=== PATIENT | female | born 1970 | race Caucasian/White ===

== ENCOUNTER 2019-02-26 08:34 | Outpatient (RCR) | payer SELFPAY | END 2019-03-11 00:01 | LOC: SOT 08:34 | PROVIDERS: Visit Provider Orthopaedic Surgery Hand Surgery | DX: S63.591D Other specified sprain of right wrist, subsequent encounter (principal); X58.XXXD Exposure to other specified factors, subsequent encounter | CPT/HCPCS: 97110 ×5; 97112; 97166 ×2; L3923 ==

== ENCOUNTER 2019-03-12 06:00 | Outpatient (RCR) | payer OTHER, SELFPAY | END 2019-04-11 23:59 | disposition home or self-care (01) | LOC: SOT 06:00 | PROVIDERS: Visit Provider Orthopaedic Surgery Hand Surgery | DX: S63.591D Other specified sprain of right wrist, subsequent encounter (principal); X58.XXXD Exposure to other specified factors, subsequent encounter | CPT/HCPCS: 97035; 97110; 97112; 97140 ==

== ENCOUNTER 2019-03-15 18:11 | Outpatient (RCR) | payer OTHER, SELFPAY | END 2019-04-11 23:59 | disposition home or self-care (01) | LOC: SOT 18:11 | PROVIDERS: Visit Provider Orthopaedic Surgery Hand Surgery | DX: S63.591A Other specified sprain of right wrist, initial encounter (principal); X58.XXXA Exposure to other specified factors, initial encounter ==

== ENCOUNTER 2019-04-12 06:00 | Outpatient (RCR) | payer OTHER, SELFPAY | END 2019-05-10 23:59 | disposition home or self-care (01) | LOC: SOT 06:00 | PROVIDERS: Visit Provider Orthopaedic Surgery Hand Surgery | DX: S63.591D Other specified sprain of right wrist, subsequent encounter (principal); X58.XXXD Exposure to other specified factors, subsequent encounter | CPT/HCPCS: 97035; 97110; 97112; 97140 ==

== ENCOUNTER 2019-04-12 06:00 | Outpatient (RCR) | payer OTHER, SELFPAY | END 2019-05-10 23:59 | disposition home or self-care (01) | LOC: SOT 06:00 | PROVIDERS: Visit Provider Orthopaedic Surgery Hand Surgery | DX: Z01.89 Encounter for other specified special examinations (principal) ==

== ENCOUNTER 2019-05-11 06:00 | Outpatient (RCR) | payer OTHER, SELFPAY | END 2019-06-10 23:59 | disposition home or self-care (01) | LOC: SOT 06:00 | PROVIDERS: Visit Provider Orthopaedic Surgery Hand Surgery | DX: S63.591D Other specified sprain of right wrist, subsequent encounter (principal); X58.XXXD Exposure to other specified factors, subsequent encounter | CPT/HCPCS: 97110; 97112; 97530 ==

== ENCOUNTER 2019-07-11 06:00 | Outpatient (RCR) | payer OTHER, SELFPAY | END 2019-08-10 23:59 | disposition home or self-care (01) | LOC: SOT 06:00 | PROVIDERS: Visit Provider Orthopaedic Surgery Hand Surgery | DX: S63.591D Other specified sprain of right wrist, subsequent encounter (principal); X58.XXXD Exposure to other specified factors, subsequent encounter | CPT/HCPCS: 97110; 97530 ==

== ENCOUNTER 2019-08-11 06:00 | Outpatient (RCR) | payer OTHER, SELFPAY | END 2019-09-09 23:59 | disposition home or self-care (01) | LOC: SOT 06:00 | PROVIDERS: Visit Provider Orthopaedic Surgery Hand Surgery | DX: S63.591D Other specified sprain of right wrist, subsequent encounter (principal) | CPT/HCPCS: 97110; 97112; 97140; 97530 ==

== ENCOUNTER 2019-09-10 06:00 | Outpatient (RCR) | payer OTHER, SELFPAY | END 2019-10-10 23:59 | disposition home or self-care (01) | LOC: SOT 06:00 | PROVIDERS: Visit Provider Orthopaedic Surgery Hand Surgery | DX: S63.591D Other specified sprain of right wrist, subsequent encounter (principal) | CPT/HCPCS: 97110; 97530 ==

== ENCOUNTER 2019-10-11 06:00 | Outpatient (RCR) | payer OTHER, SELFPAY | END 2019-11-10 23:59 | disposition home or self-care (01) | LOC: SOT 06:00 | PROVIDERS: Visit Provider Orthopaedic Surgery Hand Surgery | DX: S63.591D Other specified sprain of right wrist, subsequent encounter (principal) | CPT/HCPCS: 97110; 97140; 97530 ==

== ENCOUNTER 2019-11-11 06:00 | Outpatient (RCR) | payer OTHER, SELFPAY | END 2019-12-10 23:59 | disposition home or self-care (01) | LOC: SOT 06:00 | PROVIDERS: Visit Provider Orthopaedic Surgery Hand Surgery | DX: S63.591D Other specified sprain of right wrist, subsequent encounter (principal) | CPT/HCPCS: 97110; 97112; 97140 ==

== ENCOUNTER 2019-12-11 06:00 | Outpatient (RCR) | payer OTHER, SELFPAY | END 2020-01-10 23:59 | disposition home or self-care (01) | LOC: SOT 06:00 | PROVIDERS: Visit Provider Orthopaedic Surgery Hand Surgery | DX: Z47.89 Encounter for other orthopedic aftercare (principal) | CPT/HCPCS: 97032; 97110; 97530 ==

== ENCOUNTER → 2019-12-29 12:25 | Outpatient (BNVA) | payer OTHER, SELFPAY | PROVIDERS: Visit Provider Nurse Practitioner Family | DX: Z11.59 Encounter for screening for other viral diseases (principal); Z20.828 Contact with and (suspected) exposure to other viral communicable diseases; J06.9 Acute upper respiratory infection, unspecified | CPT/HCPCS: 87635 ==

== ENCOUNTER 2020-01-11 06:00 | Outpatient (RCR) | payer OTHER, SELFPAY | END 2020-02-09 23:59 | disposition home or self-care (01) | LOC: SOT 06:00 | PROVIDERS: Visit Provider Orthopaedic Surgery Hand Surgery | DX: S69.81XD Other specified injuries of right wrist, hand and finger(s), subsequent encounter (principal) | CPT/HCPCS: 97110; 97112; 97535 ==

== ENCOUNTER 2020-02-10 06:00 | Outpatient (RCR) | payer OTHER, SELFPAY | END 2020-03-11 23:59 | disposition home or self-care (01) | LOC: SOT 06:00 | PROVIDERS: Visit Provider Orthopaedic Surgery Hand Surgery | DX: S69.81XD Other specified injuries of right wrist, hand and finger(s), subsequent encounter (principal) | CPT/HCPCS: 97035; 97110; 97112; 97535 ==

== ENCOUNTER 2020-03-12 06:00 | Outpatient (RCR) | payer OTHER, SELFPAY | END 2020-04-11 23:59 | disposition home or self-care (01) | LOC: SOT 06:00 | PROVIDERS: Visit Provider Orthopaedic Surgery Hand Surgery | DX: S69.81XD Other specified injuries of right wrist, hand and finger(s), subsequent encounter (principal) | CPT/HCPCS: 97110; 97112; 97140; 97530; 97535 ==

== ENCOUNTER 2020-04-12 06:00 | Outpatient (RCR) | payer OTHER, SELFPAY | END 2020-05-09 23:59 | disposition home or self-care (01) | LOC: SOT 06:00 | PROVIDERS: Visit Provider Orthopaedic Surgery Hand Surgery | DX: S69.81XD Other specified injuries of right wrist, hand and finger(s), subsequent encounter (principal) | CPT/HCPCS: 97110; 97112; 97530 ==

== ENCOUNTER 2020-05-04 06:00 | Outpatient (RCR) | payer OTHER, SELFPAY | END 2020-05-06 23:59 | disposition home or self-care (01) | LOC: SPT 06:00 | PROVIDERS: Referring Provider Orthopaedic Surgery Hand Surgery; Visit Provider Orthopaedic Surgery Hand Surgery | DX: Z47.89 Encounter for other orthopedic aftercare (principal); S63.591D Other specified sprain of right wrist, subsequent encounter; X58.XXXD Exposure to other specified factors, subsequent encounter | CPT/HCPCS: 97750 ==

== ENCOUNTER 2020-11-15 11:20 | Emergency (ER) | payer MEDICARE, MEDICAID, SELFPAY ==
[2020-11-15 11:25] VITALS: BP 135/96; PULSE 123; RESP 21; TEMP 36.9; O2SAT 94; BMI 25.1
--- NOTE | 2020-11-15 12:27 | CTR_ITS ---
PROCEDURE INFORMATION: Exam: CT Maxillofacial With Contrast Exam date and time: 11/15/2020 12:27 PM Age: 50 years old Clinical indication: Mass, lump, or swelling; Other: Lt cheek; Jaw pain; Prior surgery; Additional info: Facial swelling TECHNIQUE: Imaging protocol: Computed tomography images of the face with intravenous contrast. Radiation optimization: All CT scans at this facility use at least one of these dose optimization techniques: automated exposure control; mA and/or kV adjustment per patient size (includes targeted exams where dose is matched to clinical indication); or iterative reconstruction. Contrast material: OMNI 300; Contrast volume: 95 ml; Contrast route: INTRAVENOUS (IV); COMPARISON: No relevant prior studies available. RADIATION DOSE METRICS: Total DLP (mGy-cm): 724.12 FINDINGS: Orbital cavity: Orbits are normal. Globes are unremarkable. Bones/joints: No acute fracture. Paranasal sinuses: There is opacification of the bilateral maxillary and ethmoid sinus. Soft tissues: There is soft tissue swelling along the left maxilla and mandible. No abscess or soft tissue gas. Lymph nodes: There are bilateral jugulodigastric lymph nodes with a short-axis diameter of [address]/CT facial bones w con [id number] IMPRESSION: There is soft tissue cellulitis of the left face adjacent to the left maxilla and mandible.No abscess or soft tissue gas. Radiation Dose CTDIVOL = (mGy): DLP = 724.12 (mGy-cm)
--- NOTE | 2020-11-15 12:34 | W.ED.GENADLT ---
HPI - General Adult General: Chief complaint: General Medical Stated complaint: Swollen Face Time Seen by Provider: 11/15/20 12:26 History of Present Illness: HPI narrative: 50-year-old female presents with left facial swelling. States she has had dental caries and has had a left upper toothache for 5 days. Yesterday she started noticing left facial swelling. Denies any swelling in her throat. Denies difficulty tolerating food or liquids. Denies muffled voice throat pain chest pain or shortness of breath. Denies headache or focal weakness numbness tingling vision or hearing change. Denies fevers or chills. Able to tolerate secretions. Review of Systems Narrative: - CONSTITUTIONAL: Denies weight loss, fever and chills. - HEENT: See above, denies changes in vision and hearing. - RESPIRATORY: Denies SOB and cough. - CV: Denies palpitations and CP. - GI: Denies abdominal pain, nausea, vomiting and diarrhea. - : Denies dysuria and urinary frequency. - MSK: Denies myalgia and joint pain. - SKIN: Denies rash and pruritus. - NEUROLOGICAL: Denies headache, weakness, numbness and syncope. - PSYCHIATRIC: Denies suicidal ideation Physical Exam Narrative: EXAM NARRATIVE: - GENERAL: Alert and oriented x 3. No acute distress. Well-nourished. - EYES: EOMI. Anicteric. - HENT: Left facial swelling especially around the left cheek. There is dental caries. Uvula is midline. No signs of David's angina. Moist mucous membranes. No scleral icterus. No cervical lymphadenopathy. - LUNGS: Clear to auscultation bilaterally. No accessory muscle use. - CARDIOVASCULAR: Regular rate and rhythm. No murmur. No JVD. - ABDOMEN: Soft, non-tender and non-distended. Negative CVA tenderness bilaterally, no rebound or guarding, negative Moscoso sign. No palpable masses. - EXTREMITIES: No edema. Non-tender. - SKIN: No rashes or lesions. Warm. - NEUROLOGIC: No meningismus or focal neurological deficits. CN II-XII grossly intact. - PSYCHIATRIC: Cooperative. Appropriate mood and affect. Course Vital Signs: Vital signs: Vital Signs Temperature 97.7 F 11/15/20 14:01 Pulse Rate 90 11/15/20 14:01 Respiratory Rate 16 11/15/20 14:01 Blood Pressure 144/81 11/15/20 14:01 Pulse Oximetry 97 11/15/20 14:01 MDM - General Adult MDM Narrative: Medical decision making narrative: 50-year-old female presents with left facial swelling. Does have dental caries. No signs of Margarito's angina or deep tissue abscess. She does not have stridor. She is tolerating secretions. Initially tachycardic but this improved after IV fluids. Otherwise she seemed to be stable afebrile nontoxic-appearing. CBC and BMP unremarkable. No signs of sepsis. Dose of clindamycin provided emergency department with significant reduction in swelling. Prescription for clindamycin provided. CT scan does not reveal any orbital cellulitis or deep tissue infection. There are signs of cellulitis. Patient was given dental resource sheet and social work was contacted to help patient set up appointment with dentist and PCP. At this time I believe patient would be safe for discharge and outpatient follow-up. Return precautions provided. Plan was reviewed with the patient who expressed understanding. Questions answered. Patient will follow up with dentist and PCP. Patient discharged in stable condition. Lab Data: Labs: Lab Results 11/15/20 11/15/20 11/15/20 Range/Units 13:30 13:30 15:03 WBC 8.3 (4.0-10.0) 10^3/ uL RBC 4.44 (4.1-5.3) 10^6/u L Hgb 14.4 (11.5-15.3) g/dL Hct 44.7 (37.0-47.0) % MCV 100.7 H (81-99) fl MCH 32.4 (28.0-34.0) pg MCHC 32.2 (30.0-36.0) g/dL RDW 14.8 (12.1-15.1) % Plt Count 352 (130-400) 10^3/c mm MPV 8.8 (7.4-10.4) fL Neut % (Auto) 61.3 % Lymph % (Auto) 30.2 % Steele % (Auto) 6.9 % Eos % (Auto) 0.6 % Baso % (Auto) 0.6 % Neut # (Auto) 5.11 (1.8-7.7) 10^3/u L Lymph # (Auto) 2.5 (0.8-4.8) 10^3/u L [place] # (Auto) 0.6 (0.2-0.9) 10^3/u L Eos # (Auto) 0.1 (0.0-0.8) 10^3/u L Baso # (Auto) 0.1 (0.0-0.1) 10^3/u L Nucleated RBC % (a uto) 0 % Nucleated RBCs # 0.0 /100WBC Sodium Cancelled 138 Potassium Cancelled 4.2 Chloride Cancelled 99 Carbon Dioxide Cancelled 24 Anion Gap Cancelled 19.2 H BUN Cancelled 12 Creatinine Cancelled 0.7 GFR Calculation Cancelled 88.2 L Glucose Cancelled 83 Calculated Osmolal ity Cancelled 285 Calcium Cancelled 8.8 Discharge Plan Discharge Patient Disposition: Home Clinical Impression: Facial cellulitis, Pain, dental Condition: Stable Prescriptions: New clindamycin HCl 150 mg capsule 450 mg PO Q8H 7 Days Qty: 63 RF: 0 No Action Aspir-81 81 mg Tablet,Delayed Release (Dr/Ec) 81 mg PO QAM RF: 0 Euthyrox 100 mcg tablet 200 mcg PO QAM RF: 0 nortriptyline 10 mg capsule 10 mg PO BEDTIME RF: 0 ibuprofen 200 mg Tablet 800 mg PO Q6H PRN (Reason: Pain) RF: 0 ProAir HFA 90 mcg/actuation Hfa Aerosol Inhaler 2 puff INHALATION Q4H PRN (Reason: Shortness Of Breath) RF: 0 Flovent HFA 2 puff PO BID RF: 0 Discharge Orders: Discharge ED (Routine); Ordered 11/15/20 Ordered By: Oliverio Dc Patient Instructions: Cellulitis (ED), Toothache (ED), Opioid Safety Coding Level of Care Code ED Torch Straightener And Heater for Serenity Chaney
--- NOTE | 2020-11-15 12:44 | PC.PHAR ---
pt states she takes care of her own medications-pt states she got a flovent inhaler in [place] when she lived there states she is unsure of the mcg -pt states she just started taking a daily aspirin 81mg about 4 days ago
[2020-11-15 12:47] VITALS: BP 141/88; PULSE 94; RESP 16; TEMP 36.4; O2SAT 100
[2020-11-15] MEDS: iohexol 300 mg/mL 100 mL Btl IV (13:01)
[2020-11-15 13:24] VITALS: RESP 16; O2SAT 98
[2020-11-15] MEDS: ondansetron 2 mg/ML SDV 2 mL 4 MG IVP ×2 (13:24→15:37)
[2020-11-15] MEDS: morphine 4 mg/mL SDV 1 mL IVP (13:24)
[2020-11-15] MEDS: sodium chloride 0.9% 1,000 ML 999 ML IV (13:24)
[2020-11-15] MEDS: clindamycin 900 MG/50 ML PREMIX 100 MG IV (13:29)
[2020-11-15 13:55] LABS: Basophils # 0.1 10^3/uL (0.0-0.1); Basophils % 0.6 %; Eosinophils # 0.1 10^3/uL (0.0-0.8); Eosinophils % 0.6 %; Hematocrit 44.7 % (37.0-47.0); Hemoglobin 14.4 g/dL (11.5-15.3); Lymphocytes # 2.5 10^3/uL (0.8-4.8); Lymphocytes % 30.2 %; Mean Corpuscular HGB Conc 32.2 g/dL (30.0-36.0); Mean Corpuscular Hemoglobin 32.4 pg (28.0-34.0); Mean Corpuscular Volume 100.7 fl (81-99); Mean Platelet Volume 8.8 fL (7.4-10.4); Monocytes # 0.6 10^3/uL (0.2-0.9); Monocytes % 6.9 %; Neutrophils # 5.11 10^3/uL (1.8-7.7); Neutrophils % 61.3 %; Nucleated Red Blood Cells % 0 %; Platelet Count 352 10^3/cmm (130-400); Red Blood Count 4.44 10^6/uL (4.1-5.3); Red Cell Distribution Width 14.8 % (12.1-15.1); White Blood Count 8.3 10^3/uL (4.0-10.0)
[2020-11-15 14:01] VITALS: BP 144/81; PULSE 90; RESP 16; TEMP 36.5; O2SAT 97
[2020-11-15 15:28] LABS: Anion Gap 19.2 (5-19); Blood Urea Nitrogen 12 mg/dL (6-20); Calcium 8.8 mg/dL (8.5-10.5); Carbon Dioxide 24 mmol/L (22-29); Chloride 99 mmol/L (98-107); Glomerular Filtration Rate 88.2 mL/min (90-130); Glucose 83 mg/dL (65-115); Osmolality Calculated 285 mOsm/kg (285-295); Potassium 4.2 mmol/L (3.5-5.1); Sodium 138 mmol/L (136-145)
[2020-11-15 16:14] VITALS: BP 126/79; PULSE 86; RESP 16; TEMP 36.7; O2SAT 99
--- NOTE | 2020-11-18 15:37 | DCPLANNER ---
retention manager had message to speak with patient about getting a dentist appointment for patient. retention manager spoke with patient and explained that there was not a dentist in the area that operates with a sliding scale. retention manager did tell patient that the clinic in [facility] have a sliding scale that patient could apply for.
== END 2020-11-15 16:24 | disposition home or self-care (01) ==
PROVIDERS: Emergency Provider Emergency Medicine
DX: L03.211 Cellulitis of face (principal); K08.89 Other specified disorders of teeth and supporting structures; Z79.82 Long term (current) use of aspirin
CPT/HCPCS: 70487; 80048; 85025; 87040; 96365; 96375; 96376; 99284; J2270; J2405; J3490; J7030; Q9967

== ENCOUNTER 2020-11-19 09:48 | Outpatient (CLI) | payer OTHER, SELFPAY ==
--- NOTE | 2020-11-19 09:55 | MR_ITS ---
WS: [id number] MRI CERVICAL SPINE NONCONTRAST HISTORY: RIGHT arm pain for one and a half years. COMPARISON: None available. Technique: Multiplanar, multisequence noncontrast imaging of the cervical spine. Straightening of the normal cervical lordosis. Very mild curvature. Signal within the cervical cord is normal. Visualized posterior fossa is unremarkable. Craniocervical junction, C1 and C2 relationship, odontoid process and soft tissues are normal. C2-C3: Normal. C3-C4: Normal. C4-C5: Small foraminal osteophytes. No stenosis. C5-C6: Bilateral foraminal osteophytes slightly greater on the LEFT. No stenosis. C6-C7: Minimal diffuse disc bulging and osteophytosis. No stenosis. C7-T1: Normal. Paraspinal soft tissue are normal. MR/MR cervical spin wo con* [id number] IMPRESSION: 1. Mild straightening and curvature of the cervical spine. 2. No high-grade central or foraminal stenosis. 3. Small osteophytes from C4-5 to C6-7 with no significant stenosis.
== END 2020-11-19 09:49 | disposition home or self-care (01) ==
LOC: RADWPI 09:52
PROVIDERS: Visit Provider Physical Medicine & Rehabilitation
DX: G90.511 Complex regional pain syndrome I of right upper limb (principal); M25.78 Osteophyte, vertebrae
CPT/HCPCS: 72141

== ENCOUNTER 2021-08-09 14:01 | Emergency (ER) | payer OTHER, SELFPAY ==
[2021-08-09 14:11] VITALS: BP 165/114; PULSE 106; RESP 18; TEMP 36.4; O2SAT 97; BMI 25.0
--- NOTE | 2021-08-09 14:42 | ED_ITS ---
HPI - Back Pain/Injury General: Chief Complaint: Back Pain/Injury Stated Complaint: back pain Time Seen by Provider: 08/09/21 14:20 Source: patient Mode of arrival: ambulatory Limitations: no limitations History of Present Illness: Patient is a 50-year-old female presents to ED today with a complaint of back pain. Patient tells me on 07/19 she had a spinal cord stimulator placed by a pain management clinic at [facility] in [place]. She states she was doing well following the procedure and felt like the stimulator was working well. She states on Sunday she went to stand up and immediately felt something pull in the right side of her back. Patient is concerned she damaged her spinal cord stimulator. She states she has turned off the device. Pain is centered around her right thoracic paraspinal musculature without radiation. MD elicited complaint: back pain Pertinent past history: prior back pain and back surgery Onset (ago): day(s) Timing: constant Severity: severe Similar Symptoms Previously: No Quality: burning and spasming Location: right upper back Radiation: none Exacerbating factors: movement Relieving factors: none Associated symptoms: Reports no associated symptoms and nausea; Deny abdominal pain, chills, change in bowel habits, dysuria, fever(s), urinary urgency or vomiting Work related injury: No Review of Systems Const: Denies: fever(s), chills or body aches Card: Denies: chest pain Resp: Denies: dyspnea GI: Reports: nausea; Denies: abdominal pain, vomiting, diarrhea or change in bowel habits : Denies: flank pain, difficulty voiding, dysuria, urinary frequency, urinary urgency or urinary hesitancy Musc: Reports: back pain; Denies: neck pain, extremity pain, extremity swelling, joint pain or joint swelling Skin/Breast: Denies: rash Neuro: Denies: headache(s), numbness in extremities, weakness in extremities or sensory changes Physical Exam Const: COMMON NORMALS: patient oriented x3, no limitations, alert and well nourished GENERAL APPEARANCE: cooperative and in distress (uncomfortable secondary to pain) ORIENTATION/CONSCIOUSNESS: Yes awake, Yes oriented to person, Yes oriented to place and Yes oriented to time Neck/C-Spine: COMMON NORMALS: full ROM GENERAL: Yes normal visual inspection CERVICAL SPINE: Yes cervical ROM normal, No pain with cervical ROM, No Cervical spine tenderness, No step off deformity and No Paracervical muscle tenderness Chest: COMMONS NORMALS: normal inspection of the chest and normal palpation of entire chest wall Resp: COMMON NORMALS: normal respiratory effort and clear to auscultation bilaterally AUSCULTATION: clear to auscultation bilaterally Cardio: COMMON NORMALS: regular rate and regular rhythm RATE: regular rate RHYTHM: regular rhythm GI: COMMON NORMALS: Normal to inspection, nondistended, normoactive bowel sounds present, Soft to palpation, non-tender, No hepatosplenomegaly present and no masses PALPATION: Yes Soft to palpation and Yes No hepatosplenomegaly present : COMMON NORMALS: Yes no CVA tenderness BLADDER/KIDNEY EXAM: Yes no CVA tenderness Back/Pelvis: COMMON NORMALS: no CVA tenderness THORACIC SPINE/UPPER BACK: Yes pain with ROM, No thoracic spinal tenderness and Yes paraspinal muscle spasm LUMBAR SPINE/LOWER BACK: Yes pain with ROM, No lumbar spinal tenderness and No paraspinal muscle spasm PELVIS: Yes buttocks normal SACROILIAC JOINTS: Yes SI joints normal OTHER: spinal cord stimulator incisions are clean/well healed BACK IMAGE (FEMALE): 1. TTP; muscle spasm palpable Extremity: COMMON NORMALS: normal to inspection GENERAL: Yes normal exam ex cept as noted Neuro: MELANY COMA SCALE: document GCS findings Melany coma scale eye opening: Spontaneous Melany coma scale verbal response: Orientated Melany coma scale motor response: Obey commands Melany coma scale total score: 15 COMMON NORMALS: patient oriented x3, moves all extremities, no focal motor deficits, no sensory deficits noted and gait normal SENSORIUM/ORIENTATION: Yes alert, Yes oriented to person, Yes oriented to place and Yes oriented to time Skin: COMMON NORMALS: no rashes or lesions noted GENERAL SKIN EXAM: no rashes or lesions noted Course Vital Signs: Vital signs: Vital Signs Temperature 97.6 F 08/09/21 14:11 Pulse Rate 106 H 08/09/21 14:11 Respiratory Rate 16 08/09/21 15:41 Blood Pressure 165/114 08/09/21 14:11 Pulse Oximetry 97 08/09/21 14:11 MDM - Back Pain/Injury Medical Decision Making Patient states she feels better after IM medications given here. She states she is now able to sit and stand without difficulty whereas before she was having quite a bit of discomfort with this. I would have a low suspicion for any damage to her spinal cord stimulator such as lead migration or lead fracture based on her mechanism of injury. She had point tenderness and spasm to her right thoracic paraspinal musculature. Recommend she does go ahead and follow- up with her acid painter that placed the stimulator. Will place on muscle relaxer, steroid, NSAIDS in the meantime. Discharge Plan Discharge Patient Disposition: Home Clinical Impression: Paraspinal muscle spasm Strain of mid-back Qualifiers: Encounter type: initial encounter Qualified Code(s): S29.012A - Strain of muscle and tendon of back wall of thorax, initial encounter Condition: Stable Prescriptions: New diclofenac sodium 50 mg tablet,delayed release (DR/EC) 50 mg PO Q12H PRN (Reason: pain) Qty: 20 0RF Medrol (Vishal) 4 mg tablets,dose pack See Rx Instructions .ROUTE .COMPLEX Qty: 21 0RF Rx Instructions: orally per package directions Valium 5 mg tablet 5 mg PO Q8H PRN (Reason: muscle spasm) Qty: 14 0RF Discontinued ibuprofen 200 mg Tablet 800 mg PO Q6H PRN (Reason: Pain) 0RF No Action Aspir-81 81 mg Tablet,Delayed Release (Dr/Ec) 81 mg PO QAM 0RF Euthyrox 100 mcg tablet 200 mcg PO QAM 0RF nortriptyline 10 mg capsule 10 mg PO BEDTIME 0RF ProAir HFA 90 mcg/actuation Hfa Aerosol Inhaler 2 puff INHALATION Q4H PRN (Reason: Shortness Of Breath) 0RF Flovent HFA 2 puff PO BID 0RF Discharge Orders: Discharge ED (Routine); Ordered 08/09/21 Ordered By: Monica Francis Coding Level of Care Code ED Journey Lineman for Ancag Fwd Exam Comprehensive
[2021-08-09] MEDS: orphenadrine 30 mg/mL Inj 2 mL 60 MG IM (15:40)
[2021-08-09] MEDS: dexamethasone 10 mg/mL INJ 8 MG IM (15:40)
[2021-08-09] MEDS: ketorolac 60 mg/2 mL INJ IM (15:40)
[2021-08-09 15:41] VITALS: RESP 16
[2021-08-09] MEDS: morphine 4 mg/mL SDV 1 mL IM (15:41)
== END 2021-08-09 16:47 | disposition home or self-care (01) ==
PROVIDERS: Emergency Provider Physician Assistant
DX: S29.012A Strain of muscle and tendon of back wall of thorax, initial encounter (principal); X58.XXXA Exposure to other specified factors, initial encounter
CPT/HCPCS: 96372; 99284; J1100; J1885; J2270; J2360

== ENCOUNTER 2021-10-26 06:00 | Outpatient (RCR) | payer OTHER, SELFPAY | END 2021-11-09 23:59 | disposition home or self-care (01) | LOC: SPT 06:00 | PROVIDERS: Visit Provider Physical Medicine & Rehabilitation | DX: G90.511 Complex regional pain syndrome I of right upper limb (principal) | CPT/HCPCS: 97162 ==

== ENCOUNTER 2021-11-10 | Outpatient (RCR) | payer OTHER, SELFPAY | END 2021-12-09 23:59 | disposition home or self-care (01) | LOC: SPT | PROVIDERS: Visit Provider Physical Medicine & Rehabilitation | DX: G90.511 Complex regional pain syndrome I of right upper limb (principal) | CPT/HCPCS: 97110 ==

== ENCOUNTER 2021-12-10 06:00 | Outpatient (RCR) | payer OTHER, SELFPAY | END 2022-01-09 23:59 | disposition home or self-care (01) | LOC: SPT 06:00 | PROVIDERS: Visit Provider Physical Medicine & Rehabilitation | DX: G90.511 Complex regional pain syndrome I of right upper limb (principal) | CPT/HCPCS: 97110 ==

== ENCOUNTER 2022-02-09 06:00 | Outpatient (RCR) | payer OTHER, SELFPAY | END 2022-03-11 23:59 | disposition home or self-care (01) | LOC: SPT 06:00 | PROVIDERS: Visit Provider Physical Medicine & Rehabilitation | DX: G90.511 Complex regional pain syndrome I of right upper limb (principal) | CPT/HCPCS: 97110 ==

== ENCOUNTER 2022-03-12 06:00 | Outpatient (RCR) | payer OTHER, SELFPAY | END 2022-04-11 23:59 | disposition home or self-care (01) | LOC: SPT 06:00 | PROVIDERS: Visit Provider Physical Medicine & Rehabilitation | DX: G90.511 Complex regional pain syndrome I of right upper limb (principal) | CPT/HCPCS: 97110 ==

== ENCOUNTER 2022-04-12 06:00 | Outpatient (RCR) | payer OTHER, SELFPAY | END 2022-05-09 23:59 | disposition home or self-care (01) | LOC: SPT 06:00 | PROVIDERS: Visit Provider Physical Medicine & Rehabilitation | DX: G90.511 Complex regional pain syndrome I of right upper limb (principal) | CPT/HCPCS: 97110 ==

== ENCOUNTER 2022-05-24 23:22 | Emergency (ER) | payer MEDICARE, SELFPAY ==
[2022-05-24 23:47] VITALS: BMI 26.5
[2022-05-24 23:57] VITALS: BP 166/77; PULSE 89; RESP 16; TEMP 36.8; O2SAT 95
--- NOTE | 2022-05-25 00:07 | ECG_ITS ---
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
--- NOTE | 2022-05-25 00:15 | W.ED.GENADLT ---
HPI - General Adult General: Chief complaint: General Medical Stated complaint: High Blood Pressure Time Seen by Provider: 05/24/22 23:24 Source: patient Mode of arrival: ambulatory Limitations: no limitations History of Present Illness: 51-year-old female has a history of hypertension she states she took her blood pressure today at [facility] was 180/120 she came extremely anxious and came into the ER she still very anxious and tearful she denies any chest pain denies any pain anywhere denies any worsening proving factors blood pressure here is now normal. Associated symptoms: Deny chest pain, dyspnea, headache(s), nausea, rash or vomiting Review of Systems Const: Denies: fever(s), chills, body aches or change in appetite Eyes: Denies: blurry vision or eye discomfort ENMT: Denies: throat pain or dental pain Card: Denies: chest pain Resp: Denies: dyspnea GI: Denies: abdominal pain, nausea, vomiting or diarrhea : Denies: dysuria Musc: Denies: neck pain or back pain Skin/Breast: Denies: rash Neuro: Denies: headache(s) Psych: Denies: depression Brian/Lymph: Denies: easy bruising All/Imm: Denies: urticaria PFSH ED PFSH: Medical History (Updated 05/25/22 @ 01:02 by Juliane Saldivar MD) Hypertension Social History (Updated 05/25/22 @ 00:15 by Juliane Saldivar MD) Substance/Drug Use: never Physical Exam Const: COMMON NORMALS: no acute distress, patient oriented x3 and healthy appearing GENERAL APPEARANCE: anxious HENMT: COMMON NORMALS: normocephalic and atraumatic HEAD & SCALP: normocephalic and atraumatic Eye: COMMON NORMALS: Equal, round and reactive pupils present and EOMs intact bilaterally PUPIL: Yes Equal, round and reactive pupils present Neck/C-Spine: COMMON NORMALS: full ROM and supple Chest: COMMONS NORMALS: normal inspection of the chest and normal palpation of entire chest wall Resp: COMMON NORMALS: normal respiratory effort, No retractions, No use of accessory muscles and clear to auscultation bilaterally AUSCULTATION: clear to auscultation bilaterally Cardio: COMMON NORMALS: regular rate, regular rhythm and No murmurs present (Cardio) RATE: regular rate RHYTHM: regular rhythm GI: COMMON NORMALS: Normal to inspection, nondistended, normoactive bowel sounds present, Soft to palpation, non-tender and no masses PALPATION: Yes Soft to palpation Extremity: COMMON NORMALS: normal to inspection and full ROM Neuro: COMMON NORMALS: patient oriented x3, moves all extremities and no focal motor deficits Psych: COMMON NORMALS: mental status grossly normal, Normal thought process present and cooperative THOUGHT PROCESS: Normal thought process present Skin: COMMON NORMALS: no rashes or lesions noted and no wounds GENERAL SKIN EXAM: no rashes or lesions noted Course Vital Signs: Vital signs: Vital Signs Temperature 98.2 F 05/24/22 23:57 Pulse Rate 89 05/24/22 23:57 Respiratory Rate 16 05/24/22 23:57 Blood Pressure 166/77 05/24/22 23:57 Pulse Oximetry 95 05/24/22 23:57 Oxygen Delivery Me thod 05/24/22 23:57 MDM - General Adult Medical Decision Making Patient presents here after a high reading of her blood pressure at the [employer] blood pressure cuff.'s been normal blood work is normal she is stable for discharge she is to follow-up with her PCP and return if worsening she understands agrees to plan. Lab Data 05/25/22 00:39 05/25/22 00:39 Laboratory Results WBC 6.0 10^3/uL (4.0-10.0) 05/25/22 00:39 RBC 4.45 10^6/uL (4.1-5.3) 05/25/22 00:39 Hgb 14.1 g/dL (11.5-15.3) 05/25/22 00:39 Hct 43.5 % (37.0-47.0) 05/25/22 00:39 MCV 97.8 fl (81-99) 05/25/22 00:39 MCH 31.7 pg (28.0-34.0) 05/25/22 00:39 MCHC 32.4 g/dL (30.0-36.0) 05/25/22 00:39 RDW 13.3 % (12.1-15.1) 05/25/22 00:39 Plt Count 269 10^3/cmm (130-400) 05/25/22 00:39 MPV 9.4 fL (7.4-10.4) 05/25/22 00:39 Neut % (Auto) 32.5 % 05/25/22 00:39 Lymph % (Auto) 58.7 % 05/25/22 00:39 [place] % (Auto) 6.0 % 05/25/22 00:39 Eos % (Auto) 1.8 % 05/25/22 00:39 Baso % (Auto) 0.8 % 05/25/22 00:39 Neut # (Auto) 1.95 10^3/uL (1.8-7.7) 05/25/22 00:39 Lymph # (Auto) 3.5 10^3/uL (0.8-4.8) 05/25/22 00:39 [place] # (Auto) 0.4 10^3/uL (0.2-0.9) 05/25/22 00:39 Eos # (Auto) 0.1 10^3/uL (0.0-0.8) 05/25/22 00:39 Baso # (Auto) 0.1 10^3/uL (0.0-0.1) 05/25/22 00:39 Nucleated RBC % (auto) 0 % 05/25/22 00:39 Nucleated RBCs # 0.0 /100WBC 05/25/22 00:39 Sodium 144 mmol/L (136-145) 05/25/22 00:39 Potassium 3.5 mmol/L (3.5-5.1) 05/25/22 00:39 Chloride 106 mmol/L (98-107) 05/25/22 00:39 Carbon Dioxide 24 mmol/L (22-29) 05/25/22 00:39 Anion Gap 17.5 (5-19) 05/25/22 00:39 BUN 8 mg/dL (6-20) 05/25/22 00:39 Creatinine 0.6 mg/dL (0.5-0.9) 05/25/22 00:39 GFR Calculation 105.0 mL/min (90-130) 05/25/22 00:39 Glucose 98 mg/dL (65-115) 05/25/22 00:39 Calcium 8.9 mg/dL (8.5-10.5) 05/25/22 00:39 EKG Data EKG 1: I personally reviewed and interpreted this EKG as follows: EKG interpretation date: 05/25/22 EKG interpretation time: 00:21 Interpretation: nsr hr [address] or t wave abnormalities qrs 74 qtc 389 Discharge Plan Discharge Patient Disposition: Home Clinical Impression: Hypertension Prescriptions: No Action Aspir-81 81 mg Tablet,Delayed Release (Dr/Ec) 81 mg PO QAM Euthyrox 100 mcg tablet 200 mcg PO QAM nortriptyline 10 mg capsule 10 mg PO BEDTIME ProAir HFA 90 mcg/actuation Hfa Aerosol Inhaler 2 puff INHALATION Q4H PRN (Reason: Shortness Of Breath) Flovent HFA 2 puff PO BID diclofenac sodium 50 mg tablet,delayed release (DR/EC) 50 mg PO Q12H PRN (Reason: pain) Qty: 20 0RF Medrol (Vishal) 4 mg tablets,dose pack See Rx Instructions .ROUTE .COMPLEX Qty: 21 0RF Rx Instructions: orally per package directions Valium 5 mg tablet 5 mg PO Q8H PRN (Reason: muscle spasm) Qty: 14 0RF Discharge Orders: Discharge ED (Routine); Ordered 05/25/22 Ordered By: Juliane Saldivar Referrals: Enrico Johnson MD [Primary Care Provider] - 1-3 days Discharge Diet: Advance as tolerated Discharge Activity: Resume usual activity Patient Instructions: Hypertension (ED) Coding Level of Care Code ED Securities Teller for Chg Shiv
[2022-05-25] MEDS: ondansetron 4 MG Tablet PO (00:41)
[2022-05-25 00:48] LABS: Basophils # 0.1 10^3/uL (0.0-0.1); Basophils % 0.8 %; Eosinophils # 0.1 10^3/uL (0.0-0.8); Eosinophils % 1.8 %; Hematocrit 43.5 % (37.0-47.0); Hemoglobin 14.1 g/dL (11.5-15.3); Lymphocytes # 3.5 10^3/uL (0.8-4.8); Lymphocytes % 58.7 %; Mean Corpuscular HGB Conc 32.4 g/dL (30.0-36.0); Mean Corpuscular Hemoglobin 31.7 pg (28.0-34.0); Mean Corpuscular Volume 97.8 fl (81-99); Mean Platelet Volume 9.4 fL (7.4-10.4); Monocytes # 0.4 10^3/uL (0.2-0.9); Neutrophils # 1.95 10^3/uL (1.8-7.7); Neutrophils % 32.5 %; Nucleated Red Blood Cells % 0 %; Platelet Count 269 10^3/cmm (130-400); Red Blood Count 4.45 10^6/uL (4.1-5.3); Red Cell Distribution Width 13.3 % (12.1-15.1)
[2022-05-25 01:08] LABS: Anion Gap 17.5 (5-19); Blood Urea Nitrogen 8 mg/dL (6-20); Calcium 8.9 mg/dL (8.5-10.5); Carbon Dioxide 24 mmol/L (22-29); Chloride 106 mmol/L (98-107); Creatinine Clr Calc Pharmacy 101.5611; Glucose 98 mg/dL (65-115); Osmolality Calculated 296 mOsm/kg (285-295); Potassium 3.5 mmol/L (3.5-5.1); Sodium 144 mmol/L (136-145)
[2022-05-25 01:16] VITALS: BP 128/67; PULSE 98; RESP 18; O2SAT 93
== END 2022-05-25 01:19 | disposition home or self-care (01) ==
PROVIDERS: Emergency Provider Emergency Medicine; PCP Family Medicine
DX: I10 Essential (primary) hypertension (principal); Z79.82 Long term (current) use of aspirin
CPT/HCPCS: 80048; 85025; 93005; 99284; Q0162

== ENCOUNTER 2022-11-07 16:02 | Outpatient (CLI) | payer MEDICARE, SELFPAY ==
--- NOTE | 2022-11-07 | XR_ITS ---
WS: [id number] Exam: XR wrist LT min 3V* [id number] Date/Time of Exam: 11/07/2022 4:13 PM Reason For Exam: WRIST JOINT PAIN, LEFT There are no fractures, soft tissue swelling, or unusual calcifications. The wrist shows normal bony alignment. There is no irregularity of the bony architecture. IMPRESSION: Negative LEFT wrist.
== END 2022-11-07 16:03 | disposition home or self-care (01) ==
PROVIDERS: PCP Family Medicine; Visit Provider Family Medicine
DX: M25.532 Pain in left wrist (principal)
CPT/HCPCS: 73110

== ENCOUNTER → 2022-11-23 09:50 | Outpatient (BNVA) | payer MEDICARE, SELFPAY | PROVIDERS: PCP Family Medicine; Referring Provider Family Medicine; Visit Provider Physician Assistant | DX: M67.432 Ganglion, left wrist; Z46.89 Encounter for fitting and adjustment of other specified devices; M67.439 Ganglion, unspecified wrist | CPT/HCPCS: 73110; 97760; 99203; L3908 ==

== ENCOUNTER 2022-11-23 14:14 | Outpatient (CLI) | payer MEDICARE, SELFPAY | END 2022-11-23 14:15 | disposition home or self-care (01) | LOC: SPT 14:15 | PROVIDERS: PCP Family Medicine; Visit Provider Physician Assistant | DX: Z46.89 Encounter for fitting and adjustment of other specified devices (principal); M67.439 Ganglion, unspecified wrist | CPT/HCPCS: 97760; 99203; L3908 ==

== ENCOUNTER 2023-03-01 14:56 | Outpatient (CLI) | payer MEDICARE, SELFPAY ==
[2023-03-01 16:52] LABS: Free T4 Free Thyroxine 1.41 ng/dL (0.82-1.77); Thyroid Stimulating Hormone 8.18 uIU/mL (0.27-4.20)
[2023-03-02 15:25] LABS: Anti-Nuclear Antibody Screen NEGATIVE (NEGATIVE)
== END 2023-03-01 14:57 | disposition home or self-care (01) ==
PROVIDERS: PCP Family Medicine; Visit Provider Family Medicine
DX: Z45.42 Encounter for adjustment and management of neurostimulator (principal); M54.50 Low back pain, unspecified; F17.210 Nicotine dependence, cigarettes, uncomplicated; I10 Essential (primary) hypertension; Z01.89 Encounter for other specified special examinations; Z96.82 Presence of neurostimulator
CPT/HCPCS: 36415; 72070; 72100; 84439; 84443; 86038; 99204

== ENCOUNTER 2023-09-03 09:53 | Outpatient (CLI) | payer MEDICARE, SELFPAY ==
--- NOTE | 2023-09-03 10:18 | XR_ITS ---
WS: [id number] Exam: XR chest 2V* [id number] Date/Time of Exam: 09/03/2023 10:21 AM Reason For Exam: COUGH/LEFT BACK PAIN No priors. Lungs are hyperinflated and clear. Normal cardiomediastinal silhouette. No pleural effusions. Regiona l bony structures are intact. Neurostimulator lead extends cephalad to the cervical region. Surgica l clips in the RIGHT and LEFT neck. XR/XR chest 2V* [id number] IMPRESSION: 1. Pulmonary hyperinflation. No acute process.
== END 2023-09-03 09:54 | disposition home or self-care (01) ==
PROVIDERS: PCP Family Medicine; Visit Provider Nurse Practitioner Family
DX: J98.4 Other disorders of lung (principal); R05.8 Other specified cough; M54.89 Other dorsalgia; Z96.82 Presence of neurostimulator
CPT/HCPCS: 71046

== ENCOUNTER 2024-09-12 08:11 | Emergency (ER) | payer MEDICARE, SELFPAY ==
--- OUTSIDE RECORDS SUMMARY | 2024-09-12 08:19 | XMS_ITS | Data Portability ---
Author Organization [facility]AN [facility]o [facility] Address [address] [place] [id number] Assessment No assessment recorded. Plan of Treatment Reminders Order Date Submit Date Provider Last Modified By Organization Details Last Modified Time Details Appointments None recorded. Lab thyrotropin , QN, serum or plasma 2024 025 [place] [facility], [address] [facility] [address], [facility] 1, [place], [address], 5 13:30:18 T4, free, serum 2024 025 [place] [facility], [address] [place] [address] 248, [address] [place], [address], 12:14:26 CMP, serum or plasma 2024 025 [facility], [address] [facility] [place], [facility] 1, [place], [address], 5 14:13:10 lipid panel, blood 2024 025 [facility], [address] [facility] [place], [facility] 1, [place], [address], 5 14:13:12 CBC 2024 025 [facility], [address], [facility] [place], [address], 5 13:10:23 Referral None recorded. Procedures None recorded. Surgeries None recorded. Imaging MAMMO, screening, digital, bilateral [email or web address] [facility], [address], [place], [address], 5 07:12:54 Medication Orders azithromyci n 250 mg tablet 2024 025 [facility] 15, [address], [place], [address], 5 12:45:03 prednisone 20 mg tablet 2024 025 [facility] 15, [address], [place], [address], 5 05:01:38 omeprazole 40 mg capsule,del ayed release 2024 025 [email or web address] 1 Not available 5 12:37:19 lisinopril 40 mg tablet 2024 025 [email or web address] 1 Not available 12:37:19 levothyroxi ne 200 mcg tablet 2024 025 [email or web address] 1 Not available 5 12:37:18 triamcinolo ne acetonide 0.1 % topical ointment 2024 025 [email or web address] 1 Not available 12:07:14 Patient TargetsNo targets recorded. Patient InstructionsNo instructions recorded. Reason for Referral None Reported. Results Created Date Observation Date Name Description Value Unit Range Abnormal Flag Note LastModifiedBy Organization Detail LastModifiedTime 08/29/19 25 08/28/2024 CBC WBC 6.9 x10 4.0-10 .5 Not Available [facility] [address] [facility] [address], [place], [address], 08/28/2024 13:10:23 08/29/19 25 08/28/2024 CBC RBC 4.43 x10 3.50-5 .50 Not Available [facility] [address] [facility] 1, [place], [address], 08/28/2024 13:10:23 08/29/19 25 08/28/2024 CBC HGB 14.2 g/dL 12.0-1 6.0 Not Available [facility] [address] [facility] 1, [place], [address], 08/28/2024 13:10:23 08/29/19 25 08/28/2024 CBC HCT 44.4 % 37.0-4 7.0 Not Available [facility] [address] [address] [facility] 1, [place], [address], 08/28/2024 13:10:23 08/29/19 25 08/28/2024 CBC MCV 100.2 fL 80.0-9 9.9 high Not Available [facility] [address] [address] [facility] 1, [place], [address], 08/28/2024 13:10:23 08/29/19 25 08/28/2024 CBC MCH 32.1 pg 27.0-3 2.0 high Not Available [facility] [address] [facility] [address] [facility] 1, [place], [address], 08/28/2024 13:10:23 08/29/19 25 08/28/2024 CBC MCHC 32.0 g/dL 32.0-3 6.0 Not Available [facility] [address] [facility] [address] 1, [place], [address], 08/28/2024 13:10:23 08/29/19 25 08/28/2024 CBC RDW 13.7 % 11.5-1 4.5 Not Available [facility] [address] [address] [facility] 1, [place], [address], 08/28/2024 13:10:23 08/29/19 25 08/28/2024 CBC plt 308.5 x10 140.0- 451.0 Not Available [facility] [address] [facility] [address] [facility] 1, [place], [address], 08/28/2024 13:10:23 08/29/19 25 08/28/2024 CBC lymphocytes % 30.4 % 20.0-5 0.0 Not Available [facility] [place] [facility] [address] [facility], [place], [address], 08/28/2024 13:10:23 08/29/19 25 08/28/2024 CBC granulcytes % 60.3 % 30.0-7 0.0 Not Available [facility] [address] [facility] 1, [place], [address], 08/28/2024 13:10:23 08/29/19 25 08/28/2024 CBC monocytes % 8.4 % 2.0-16 .0 Not Available [facility] [address] [address], [place], [address], 08/28/2024 13:10:23 08/29/19 25 08/28/2024 CBC granulcytes# 4.2 x10 Not Bernadine ilable [facility] [address] [facility] 1, [place], [address], 08/28/2024 13:10:23 08/29/19 25 08/28/2024 CBC lymphocytes # 2.1 x10 Not Available [facility] [address] [address], [place], [address], 08/28/2024 13:10:23 08/29/19 25 08/28/2024 CBC monocytes # 0.6 x10 Not Avai lable [facility] [address] [facility] 1, [place], [address], 08/28/2024 13:10:23 08/29/19 25 08/28/2024 TSH TSH 1.61 uIU/m L 0.49-3 .82 Not Available [facility] [address] [facility] 1, [place], [address], 08/28/2024 13:30:18 08/29/19 25 08/28/2024 CMP (FEMA LE) glucose 115.0 mg/dL 60.0-9 9.0 high Not Available [facility] [address] [facility] 1, [place], [address], 08/28/2024 14:13:10 08/29/19 25 08/28/2024 CMP (FEMA LE) BUN (blood urea nitrogen) 10.0 mg/dL 10.0-2 6.0 Not Available [facility] [address] [facility] 1, [place], [address], 08/28/2024 14:13:10 08/29/19 25 08/28/2024 CMP (FEMA LE) creatinine (serum) 0.8 mg/dL 0.4-1. 5 Not Available [facility] [address] [facility] 1, [place], [address], 08/28/2024 14:13:10 08/29/19 25 08/28/2024 CMP (FEMA LE) BUN/creatini ne ratio 12.50 ratio Not Available [facility] [address] [facility] 1, [place], [address], 08/28/2024 14:13:10 08/29/19 25 08/28/2024 CMP (FEMA LE) eGFR calculated 79.4 Not Available [facility] [address] [facility] [address] [facility] 1, [place], [address], 08/28/2024 14:13:10 08/29/19 25 08/28/2024 CMP (FEMA LE) total protein 7.9 g/dL 6.0-8. 5 Not Available [facility] 8[address] [facility] 1, [place], [address], 08/28/2024 14:13:10 08/29/19 25 08/28/2024 CMP (FEMA LE) total bilirubin 1.0 mg/dL 0.2-1. 3 Not Available [facility] [address] [facility] 1, [place], [address], 08/28/2024 14:13:10 08/29/19 25 08/28/2024 CMP (FEMA LE) albumin 4.6 g/dL 3.5-5. 5 Not Available [facility] [address] [facility] 1, [place], [address], 08/28/2024 14:13:10 08/29/19 25 08/28/2024 CMP (FEMA LE) globulin 3.3 calc Not Available [facility] [address] [facility] 1, [place], [address], 08/28/2024 14:13:10 08/29/19 25 08/28/2024 CMP (FEMA LE) AST (SGOT) 26.0 U/L 0.0-46 .0 Not Available [facility] [address] [facility] 1, [place], [address], 08/28/2024 14:13:10 08/29/19 25 08/28/2024 CMP (FEMA LE) altv (SGPT) 18.0 U/L 13.0-6 9.0 normal Not Available [facility] [address] [facility] 1, [place], [address], 08/28/2024 14:13:10 08/29/19 25 08/28/2024 CMP (FEMA LE) A/G ratio 1.4 ratio Not Available [facility] [address] [facility] 1, [place], [address], 08/28/2024 14:13:10 08/29/19 25 08/28/2024 CMP (FEMA LE) ALP phos 106.0 U/L 30.0-1 40.0 normal Not Available [facility] [address] [facility] 1, [place], [address], 08/28/2024 14:13:10 08/29/19 25 08/28/2024 CMP (FEMA LE) calcium 9.6 mg/dL 8.4-10 .5 Not Available [facility] [address] [facility] 1, [place], [address], 08/28/2024 14:13:10 08/29/19 25 08/28/2024 CMP (FEMA LE) sodium 138.0 mmol/ L 136.0- 145.0 Not Available [facility] [address] [facility] 1, [place], [address], 08/28/2024 14:13:10 08/29/19 25 08/28/2024 CMP (FEMA LE) potassium 3.5 mmol/ L 3.5-5. 1 Not Available [facility] [address] [address], [place], [address], 08/28/2024 14:13:10 08/29/19 25 08/28/2024 CMP (FEMA LE) chloride 102.0 mmol/ L 98.0-1 10.0 normal Not Available [facility] [address] [facility] 1, [place], [address], 08/28/2024 14:13:10 08/29/19 25 08/28/2024 CMP (FEMA LE) C02 25.0 mmol/ L 22.0-3 1.0 Not Available [facility] [address] [address], [place], [address], 08/28/2024 14:13:10 08/29/19 25 08/28/2024 CMP (FEMA LE) anion gap 11.0 calc Not Available [facility] [address] [facility] 1, [place], [address], 08/28/2024 14:13:10 08/29/19 25 08/28/2024 CMP (FEMA LE) osmolality 285.1 calc Not Available [facility] [place] [facility] [address] [facility] 1, [place], [address], 08/28/2024 14:13:10 08/29/19 25 08/28/2024 LIPID PROFI LE (FEMA LE) cholesterol 180.0 mg/dL 0.0-20 0.0 Not Available [facility] [address] [facility] 1, [place], [address], 08/28/2024 14:13:12 08/29/19 25 08/28/2024 LIPID PROFI LE (FEMA LE) trig 109.0 mg/dL 0.0-15 0.0 Not Available [facility] [address] [facility] 1, [place], [address], 08/28/2024 14:13:12 08/29/19 25 08/28/2024 LIPID PROFI LE (FEMA LE) HDL - direct 66.0 mg/dL >40.0 Not Available [facility] [address] [facility] 1, [place], [address], 08/28/2024 14:13:12 08/29/19 25 08/28/2024 LIPID PROFI LE (FEMA LE) VLDL - direct 21.8 mg/dL Not Available [facility] [address] [facility] 1, [place], [address], 08/28/2024 14:13:12 08/29/19 25 08/28/2024 LIPID PROFI LE (FEMA LE) LDL - direct 92.2 mg/dL 0.0-13 0.0 Not Available [facility] [address] [facility] 1, [place], [address], 08/28/2024 14:13:12 08/29/19 25 08/29/2024 T4, FREE T4, free 1.5 NG/dL 0.8-1. 8 normal Not Available [facility] [address] [address], [place], [address], 08/29/2024 12:14:26 Result Notes None recorded. Problems Name Problem SNOMED Code Status Onset Date Resolution Date Notes Provider Name and Address Organization Details Recorded Time Anxiety 40140326 Active [address] [facility] 5 20:19:03 Hypertensive disorder 33662643 Active 2024 [facility]ESHSharp [facility] 5 20:19:11 Gastroesophage al reflux disease 306866535 Active [address] [facility] 5 20:19:06 Seasonal allergy 066793735 Active [address] [facility] 5 14:58:17 Upper respiratory infection 82687701 Active [address] [facility] 5 14:35:41 Acute upper respiratory infection 16850778 Active [address] [facility] 14:39:53 Problem Notes None recorded. Medical Equipment None Reported. Allergies Allergen ID Allergen Name Allergen Category Reaction Reaction Severity Criticality Documentation Date Start Date Code Code System Note Provider Name and Address Organization Details Recorded Time 90497 Augmentin medicatio n hives mild low 04/01/2024 72266 2 RxNorm NIDA WOODSON PA-C [address] [place], [address], [facility] 5 11:57:29 Medications Name Sig Start Date Stop Date Status Note LastModified by Organization Details LastModified Time cyclobenzap rine 10 mg tablet TAKE 1 TABLET BY MOUTH THREE TIMES DAILY NEEDED FOR MUSCLE SPASM 04/01 completed Not Available Not Available Not Available methocarbam ol 500 mg tablet TAKE 1 TABLET BY MOUTH THREE TIMES DAILY NEEDED FOR MUSCLE SPASM active Not Available Not Available No t Available tizanidine 2 mg tablet TAKE 1 TO 2 TABLETS BY MOUTH EVERY 6 HOURS NEEDED FOR MUSCLE SPASM 08/28 completed Not Available Not Available Not Available azithromyci n 250 mg tablet TAKE 2 TABLETS BY MOUTH ON DAY 1, AND THEN TAKE 1 TABLET BY MOUTH ONCE A DAY ON DAY 2 THROUGH DAY 5 active Not Available Not Available No t Available tizanidine 4 mg tablet TAKE 1 TABLET BY MOUTH EVERY 12 HOURS NEEDED FOR MUSCLE SPASM 04/01 completed Not Available Not Available Not Available benzonatate 200 mg capsule TAKE 1 CAPSULE BY MOUTH THREE TIMES DAILY FOR COUGH 04/01 completed Not Available Not Available Not Available clarithromy les 500 mg tablet TAKE 1 TABLET BY MOUTH TWICE DAILY 03/28 completed Not Available Not Available Not Available meloxicam 15 mg tablet 03/28 completed Not Available Not Available Not Available lisinopril 20 mg tablet TAKE 1 TABLET BY MOUTH ONCE DAILY 03/28 completed Not Available Not Available Not Available prednisone 20 mg tablet Take 2 tablets every day by oral route for 5 days. 09/09 completed Not Available Not Available Not Available ciprofloxac in 500 mg tablet TAKE 1 TABLET BY MOUTH TWICE DAILY 04/01 completed Not Available Not Available Not Available omeprazole 40 mg capsule,del ayed release TAKE 1 CAPSULE BY MOUTH ONCE DAILY active Not Available Not Available No t Available levothyroxi ne 25 mcg tablet TAKE 1 TABLET BY MOUTH ONCE DAILY IN ADDITION TO 200 MCG DOSE 04/01 completed Not Available Not Available Not Available triamcinolo ne acetonide 0.1 % topical ointment APPLY A SMALL AMOUNT TOPICALLY THREE TIMES DAILY NEEDED 08/28 completed Not Available Not Available Not Available polymyxin B sulfate 10,000 unit-trimet hoprim 1 mg/mL eye drops INSTILL 1 DROP INTO AFFECTED EAR 4 TIMES DAILY FOR 7 DAYS 04/01 completed Not Available Not Available Not Available levothyroxi ne 150 mcg tablet TAKE 1 TABLET BY MOUTH ONCE DAILY 04/01 completed Not Available Not Available Not Available hydroxyzine HCl 25 mg tablet TAKE 1/2 TO 1 (ONE-HALF TO ONE) TABLET BY MOUTH EVERY 6 HOURS NEEDED FOR SEVERE ANXIETY active Not Available Not Available No t Available levothyroxi ne 200 mcg tablet TAKE 1 TABLET BY MOUTH ONCE DAILY active Not Available Not Available No t Available hydrochloro thiazide 25 mg tablet TAKE 1 TABLET BY MOUTH ONCE DAILY 03/28 completed Not Available Not Available Not Available levofloxaci n 500 mg tablet TAKE 1 TABLET BY MOUTH ONCE DAILY 03/28 completed Not Available Not Available Not Available levofloxaci n 750 mg tablet Take 1 tablet every day by oral route for 5 days. 2024 active Not Available Not Available Not Avai lable albuterol sulfate HFA 90 mcg/actuati on aerosol inhaler INHALE 1 TO 2 PUFFS BY MOUTH EVERY 4 TO 6 HOURS NEEDED active Not Available Not Available No t Available lisinopril 40 mg tablet TAKE 1 TABLET BY MOUTH ONCE DAILY active Not Available Not Available No t Available ondansetron 4 mg disintegrat ing tablet DISSOLVE 1 TABLET IN MOUTH EVERY 6 TO 8 HOURS NEEDED FOR NAUSEA AND VOMITING 08/28 completed Not Available Not Available Not Available fluticasone propionate 50 mcg/actuati on nasal spray,suspe nsion [place] 1 spray every day by intranasa l route. 2024 active Not Available Not Available Not Avai lable naproxen 500 mg tablet 03/28 completed Not Available Not Available Not Available neomycin-po lymyxin-hyd rocort 3.5 mg-10,000 unit/mL-1 % ear drops,susp 03/28 completed Not Available Not Available Not Available escitalopra m 10 mg tablet 03/28 completed Not Available Not Available Not Available ciprofloxac in 0.3 %-dexametha sone 0.1 % ear drops,suspe nsion INSTILL 4 DROPS INTO AFFECTED EAR TWICE DAILY FOR 7 DAYS 03/28 completed Not Available Not Available Not Available Flovent HFA 44 mcg/actuati on aerosol inhaler INHALE 2 PUFFS BY MOUTH TWICE DAILY DIRECTED 03/28 completed Not Available Not Available Not Available Flovent HFA 110 mcg/actuati on aerosol inhaler 03/28 completed Not Available Not Available Not Available diclofenac 1 % topical gel APPLY 2 GRAMS TOPICALLY 4 TIMES DAILY 03/28 completed Not Available Not Available Not Available Arnuity Ellipta 100 mcg/actuati on powder for inhalation INHALE 1 PUFF BY MOUTH ONCE DAILY DIRECTED active Not Available Not Available No t Available Vitals Date Recorded Body height Body mass index (BMI) Body weight Oxygen saturation Oxygen saturation in Arterial blood by Pulse oximetry Heart rate Respiratory rate Body temperature Systolic And Diastolic Provider Name and Address Organization Details Last Updated DateTime 5 165.1 cm 31 kg/m2 50765.1 8 g 99 % 99 % 77 /min 20 /min 98 [degF] 138/80 mm[Hg] [facility] 5 11:19:50 Date Recorded Body height Body mass index (BMI) Body weight Oxygen saturation Oxygen saturation in Arterial blood by Pulse oximetry Heart rate Respiratory rate Body temperature Systolic And Diastolic Provider Name and Address Organization Details Last Updated DateTime 5 165.1 cm 30.3 kg/m2 68165.8 1 g 98 % 98 % 72 /min 18 /min 98.5 [degF] 130/90 mm[Hg] [facility] 5 11:59:55 Social History None recorded. Functional Status None recorded. Mental Status None recorded. Family History Nothing Reported. Medical History No medical history recorded. Gynecological HistoryNo gynecological history recorded. Obstetrics History GPAL:G 0 P 0 0 0 0 Immunizations Vaccine Type Date Status Note Provider Nam e and Address Organization Details Recorded Time zoster recombinant 3 completed NIDA WOODSON PA-C [address] [place], [address], [facility] 04/01/2024 12:00:58 zoster recombinant 3 completed NIDA WOODSON PA-C [address] [place], [address], [facility] 04/01/2024 12:00:58 COVID-19, mRNA, LNP-S, PF, 100 mcg/0.5mL dose or 50 mcg/0.25mL dose 2 completed NIDA WOODSON PA-C [address] [place], [address], [facility] 04/01/2024 12:00:58 COVID-19, mRNA, LNP-S, PF, 100 mcg/0.5mL dose or 50 mcg/0.25mL dose 1 completed NIDA WOODSON PA-C [address] [place] [address], [address], [facility] 04/01/2024 12:00:58 Pneumococcal conjugate PCV20, polysaccharide [id number] conjugate, adjuvant, PF 3 completed NIDA WOODSON PA-C [address] [place] [address], [phone], [facility] 04/01/2024 12:00:58 COVID-19, mRNA, LNP-S, bivalent, PF, 50 mcg/0.5 mL or 25mcg/0.25 mL dose 2 completed NIDA WOODSON PA-C [address] [place] [address], [address], [facility] 04/01/2024 12:00:58 Influenza, split virus, quadrivalent, PF 3 completed NIDA WOODSON PA-C [address] [place] [address], [address], [facility] 04/01/2024 12:00:58 Influenza, split virus, quadrivalent, PF 2 completed NIDA WOODSON PA-C [address] [place] [address], [address], [facility] 04/01/2024 12:00:58 Influenza, recombinant, trivalent, PF 4 completed Not Available [facility] 08/28/2024 11:15:48 COVID-19, mRNA, LNP-S, PF, maryana-sucrose, 30 mcg/0.3 mL 4 completed Not Available [facility] 08/28/2024 11:15:48 Past Encounters Encounter ID Performer Location Encounter Start Date Encounter Closed Date Diagnosis/Indication Diagnosis SNOMED-CT Code Diagnosis ICD10 Code Diagnosis Note [id number] NIDA WOODSON PA-C [facility] ([facility]) [address] [place] [phone] 04/01/2024 10:41:22 04/13/2024 07:12:54 Screening for malignant neoplasm of breast 098444668 Z12.39 Hypothyroidism 42665714 E03.9 Generalize d anxiety disorder 82476457 F41.1 Complex re gional pain syndrome 309252050 G90.511 nerve stimulator in neck wash uR upper ext affected Asthma 572577919 J45.90 9 Nicotine dependence 5629 4008 F17.200 Essential hypertension 83238786 I10 Gastroesop hageal reflux disease 476378699 K21.9 Atopic dermatitis 779748 01 L20.9 Screening for malignant neoplasm of colon 550328870 Z12.11 has a kit at home and will get it set [id number] NIDA WOODSON PA-C [facility] ([facility]) [address] [place] [phone] 08/28/2024 11:13:03 08/28/2024 13:49:48 Benign essential hypertension 0880996 I10 Acquired hypothyroidism 724371235 E03.9 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 0466965496 1167207 G56.43 Acute bact erial bronchitis 885397222 J20.8 B96.89 Health Concerns Section Related Observation LastModified by Organization Detai ls LastModified Time None Recorded Concern Status LastModified by Organization Details LastModified Time None Recorded Advance Directives Directive None Recorded Payers Insurance Date Sequence Insurance Name Policy Number Policy Carrasquillo Covered Member ID Carrasquillo Member ID Guarantor Name 08/27/2024 1 [facility] - DUAL ELIGIBLE (MEDICARE REPLACEMENT/A DVANTAGE - HMO) [facility] [id number] [facility] 08/29/2024 [place] [facility] ([facility]) [facility] [id number] [facility] 08/28/2024 2 [place] [facility] [id number] [facility] Notes Date Note Type Note Provider Name and Address Organization Details Recorded Time 5 text/html HypertensionReported bypatient.Quality:pressur e;weakness Severity:Grade 1 (130-139/80-89) Duration:has noted for years Onset/Timing:gradual onset Context:exertion;emotiona l stress Alleviating Factors:medication Aggravating Factors:salt intake Self Care:checks blood pressure at home (range 140/80-); blood pressure goal: 120/70 Associated Symptoms:shortness of breath;fatigue;decreased exercise toleranceUpper Respiratory SymptomsReported bypatient.Location:chest Quality:productive cough;sharp throat pain;congested;nasal discharge Severity:moderate Duration:symptoms lasting less than 2 weeks Onset/Timing:sudden; 5 days ago Context:sick contact;smoker Alleviating Factors:analgesics; antihistamines establish with Diya seeing [facility] Dr. 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 [facility] to treat 2 yrs since implant. all from a work comp injury NIDA WOODSON PA-C [address] [place] [address], [phone], [facility] 04/12/2024 11:58:14 5 text/html FatigueReported bypatient.Quality:general ized Severity:moderate Duration:chronic; constant Timing:gradualUpper Respiratory SymptomsReported bypatient.Location:head; chest; throat; nasal; ears; face Quality:productive cough;congested;nasal discharge Severity:moderate Duration:symptoms lasting less than 2 weeks; 4 days Onset/Timing:sudden Context:no sick contacts; no foreign travel;smoker;allergies Alleviating Factors:antihistamines; decongestant; neti pot I am miserable with this head cold x 4 days not sure if I have covid or sinus infection.I would like to have thyroid checked . Dr Enrico Branch old pcp used to check it but hasn't been checked in a while.I need my Lisinopril refilled I didnt get it and they put it back on the shelf ' NIDA WOODSON PA-C [address] [place] [address], [phone], [facility] 08/28/2024 13:46:18 OBGyn Episode No OBEpisode recorded.
[2024-09-12 08:25] VITALS: BP 127/98; PULSE 122; RESP 20; TEMP 36.7; O2SAT 95; BMI 29.2
--- NOTE | 2024-09-12 08:35 | XRR_ITS ---
PROCEDURE INFORMATION: Exam: XR Right Shoulder Exam date and time: 09/12/2024 8:40 AM Age: 53 years old Clinical indication: Right; Prior surgery; Surgery date: 6+ months; Surgery type: Thyroidectomy, and spinal cord stim; Pain while stretching, anterior and lateral upper chest around shoulder TECHNIQUE: Imaging protocol: Radiologic exam of the right shoulder. Views: 2 or more views. COMPARISON: CR XR chest 2V* [id number] 09/03/2023 10:22 AM FINDINGS: Bones/joints: Cervical neurostimulator wire. Moderate acromioclavicular and glenohumeral narrowing and spurring. Soft tissues: Normal. XR/XR shoulder RT min 2V* [id number] IMPRESSION: No acute findings.
--- NOTE | 2024-09-12 09:21 | W.ED.EXTPRO ---
HPI - Extremity Problem General: Chief complaint: Extremity Injury, Upper Stated complaint: rt shoulder Time Seen by Provider: 09/12/24 08:34 History of Present Illness: 53-year-old female presents emergency complaining of right shoulder pain for the last 2 days. She relates the pain is due to an injury she sustained when she was coughing and she pulled a muscle in her right shoulder. Associated symptoms: Reports chest pain; Deny fever(s) or rash Related Data Home Medications ?Medication ?Instructions ?Recorded ?Confirmed Flovent HFA 2 puff PO BID pt states she got 11/15/20 03/01/23 this medication in [place] when she lived there states she is unsure of the mcg albuterol sulfate 90 mcg/actuation 2 puff inhalation Q4H PRN 11/15/20 03/01/23 aerosol inhaler (ProAir HFA) Shortness Of Breath aspirin 81 mg tablet,delayed 81 mg PO QAM 11/15/20 03/01/23 release levothyroxine 100 mcg tablet 200 mcg PO QAM 11/15/20 03/01/23 (Euthyrox) nortriptyline 10 mg capsule 10 mg PO BEDTIME 11/15/20 03/01/23 escitalopram oxalate 20 mg tablet 20 mg PO DAILY 11/23/22 03/01/23 tizanidine 2 mg capsule 2 mg PO Q8H PRN 11/23/22 03/01/23 Previous Rx's ?Medication ?Instructions ?Recorded diclofenac sodium 50 mg 50 mg PO Q12H PRN pain #20 tabs 08/09/21 tablet,delayed release Cock up splint #1 ea 11/23/22 diclofenac sodium 1 % topical gel 2 g topical QID #100 grams 11/23/22 (Voltaren Arthritis Pain) meloxicam 15 mg tablet 15 mg PO DAILY #30 tabs 11/23/22 cyclobenzaprine 10 mg tablet 10 mg PO TID PRN muscle spasm 1 04/23/23 Held on 09/12/24. month #90 tabs Instructions: Resume on 09/19/24. hydrocodone 5 mg-acetaminophen 325 1 tab PO Q6H PRN pain #10 tabs 09/12/24 mg tablet prednisone 20 mg tablet 20 mg PO TID #15 tabs 09/12/24 tizanidine 4 mg tablet 4 mg PO Q6H PRN muscle spasticity 09/12/24 #20 tabs Allergies Allergy/AdvReac Type Severity Reaction Status Date / Time amoxicillin (From Augmentin) Allergy Unknown unknown Verified 03/01/23 15:07 clavulanic acid (From Allergy Unknown unknown Verified 03/01/23 15:07 Augmentin) gabapentin Allergy ALGY-Anaphy Verified 03/01/23 15:07 laxis Review of Systems Const: Denies: fever(s) or chills Card: Reports: chest pain; Denies: edema, swelling of feet/ankles, dyspnea on exertion or orthopnea Resp: Denies: dyspnea GI: Denies: abdominal pain : Denies: dysuria, urinary frequency or urinary urgency Musc: Denies: neck pain or back pain Skin/Breast: Denies: rash PFSH ED PFSH: Medical History Hypertension Social History Smoking and tobacco/nicotine status: current every day tobacco/nicotine user cigarettes Alcohol intake: current Alcohol intake frequency: holidays/special occasions only Substance/Drug Use: never Physical Exam Const: GENERAL APPEARANCE: cooperative ORIENTATION/CONSCIOUSNESS: Yes awake, Yes oriented to person, Yes oriented to place and Yes oriented to time HENMT: COMMON NORMALS: normocephalic, atraumatic and hearing grossly normal bilaterally HEAD & SCALP: normocephalic and atraumatic Resp: COMMON NORMALS: normal respiratory effort, No retractions, No use of accessory muscles and clear to auscultation bilaterally AUSCULTATION: clear to auscultation bilaterally Cardio: COMMON NORMALS: regular rate, regular rhythm and No murmurs present (Cardio) RATE: regular rate RHYTHM: regular rhythm GI: COMMON NORMALS: Soft to palpation and No hepatosplenomegaly present AUSCULTATION: Yes normoactive bowel sounds PALPATION: Yes Soft to palpation, No Tenderness to palpation present (GI), No Guarding due to palpation present (GI) and Yes No hepatosplenomegaly present Extremity: COMMON NORMALS: normal to inspection, capillary refill normal, no clubbing, cyanosis or edema, no calf tenderness and no pedal edema Neuro: SENSORIUM/ORIENTATION: Yes oriented to person, Yes oriented to place and Yes oriented to time Skin: COMMON NORMALS: no rashes or lesions noted GENERAL SKIN EXAM: no rashes or lesions noted Course Vital Signs: Vital signs: Vital Signs Temperature 98.0 F 09/12/24 08:25 Pulse Rate 68 09/12/24 11:02 Respiratory Rate 20 H 09/12/24 10:21 Blood Pressure 121/86 09/12/24 11:02 Pulse Oximetry 97 09/12/24 11:02 Oxygen Delivery Me thod Room Air 09/12/24 10:21 MDM - Extremity (Nontraumatic) Medical Decision Making Imaging unremarkable no acute fractures noted. Patient has reproducible pain with palpation and deep inspiration and motion. Improved with medications given discharge home. Discussed findings with the patient. Patient given hydrocodone prednisone tizanidine follow-up as needed Lab Data Radiology Impressions Shoulder X-Ray 09/12/24 08:35 IMPRESSION: No acute findings. Ribs X-Ray 09/12/24 09:35 IMPRESSION: No acute findings. All radiology interpretation(s) finalized by discharge Discharge Plan Discharge Patient Disposition: Home Clinical Impression: Sprain of ribs, initial encounter Condition: Stable Prescriptions: New tizanidine 4 mg tablet 4 mg PO Q6H PRN (Reason: muscle spasticity) Qty: 20 0RF Rx Instructions: do not exceed 3 doses per 24 hrs hydrocodone-acetaminophen 5-325 mg tablet 1 tab PO Q6H PRN (Reason: pain) Qty: 10 0RF prednisone 20 mg tablet 20 mg PO TID Qty: 15 0RF Rx Instructions: 1 p.o. 3 times daily x3 days, 1 p.o. twice daily x2 days, 1 p.o. daily x2 days Held cyclobenzaprine 10 mg tablet 10 mg PO TID PRN (Reason: muscle spasm) 30 Days Qty: 90 0RF Hold Instructions: Resume on 09/19/24. No Action escitalopram oxalate 20 mg tablet 20 mg PO DAILY tizanidine 2 mg capsule 2 mg PO Q8H PRN meloxicam 15 mg tablet 15 mg PO DAILY Qty: 30 0RF diclofenac sodium [Voltaren Arthritis Pain] 1 % gel 2 g topical QID Qty: 100 1RF Rx Instructions: apply to single elbow, wrist or hand; for hand includes palm/fingers/back of hand (DME) Cock up splint See Rx Instructions .Route .MEDSUPPLY Qty: 1 0RF Rx Instructions: As directed Aspir-81 81 mg Tablet,Delayed Release (Dr/Ec) 81 mg PO QAM Euthyrox 100 mcg tablet 200 mcg PO QAM nortriptyline 10 mg capsule 10 mg PO BEDTIME ProAir HFA 90 mcg/actuation Hfa Aerosol Inhaler 2 puff INHALATION Q4H PRN (Reason: Shortness Of Breath) Flovent HFA 2 puff PO BID diclofenac sodium 50 mg tablet,delayed release (DR/EC) 50 mg PO Q12H PRN (Reason: pain) Qty: 20 0RF Discharge Orders: Discharge ED (Routine); Ordered 09/12/24 Ordered By: Colt Calle Referrals: Teresita Masters PA [Primary Care Provider, [facility] Manager] Discharge Diet: Usual diet Discharge Activity: Increase activity as tolerated Patient Instructions: Opioid Safety, Pain Management, Patient Portal & [place] Instructions Activity Restrictions/Additional Instructions: Thank you for choosing [facility] for your healthcare needs today. It is very important that you follow up as instructed or that you return to the Emergency Department should you have concerns or if your condition changes or worsens in any way. You were seen in the emergency room with complaints of right shoulder and right sided rib pain. Your symptoms are very suggestive of muscular little source of pain. X-rays did not show any acute fractures. Pain is likely coming from a sprain to the ribs in the muscles of the ribs from when you were coughing. You are given a prescription for a steroid taper as well as a different muscle relaxer to use instead of cyclobenzaprine for the next week as well as pain medications. You can put heat or ice on the area as needed for comfort. Print Language: Azeri Coding Level of Care Code ED Valve Inspector for Serenity Chaney
--- NOTE | 2024-09-12 09:35 | XRR_ITS ---
PROCEDURE INFORMATION: Exam: XR Right Ribs with PA Chest Exam date and time: 09/12/2024 10:08 AM Age: 53 years old Clinical indication: Other: Pain around lateral and anterior chest on right side; Prior surgery; Surgery date: 6+ months; Surgery type: Spinal stimulator; Additional info: W cxr TECHNIQUE: Imaging protocol: Radiologic exam of the right ribs with PA chest. Views: 3 views COMPARISON: CR XR chest 2V* [id number] 09/03/2023 10:22 AM FINDINGS: Tubes, catheters and devices: Midline cervical nerve stimulator. Lungs: Unremarkable. No consolidation. Pleural spaces: Unremarkable. No pleural effusion. No pneumothorax. Heart/Mediastinum: Unremarkable. No cardiomegaly. Bones/joints: Unremarkable. XR/XR ribs RT mn 3V w CXR1V [id number] IMPRESSION: No acute findings.
[2024-09-12] MEDS: methylPREDNISolone sod succ 125 mg/2 mL INJ IVP (10:19)
[2024-09-12 10:21] VITALS: BP 130/89; RESP 20; O2SAT 97
[2024-09-12 11:02] VITALS: BP 121/86; PULSE 68; O2SAT 97
== END 2024-09-12 11:08 | disposition home or self-care (01) ==
PROVIDERS: Emergency Provider Family Medicine; PCP Physician Assistant
DX: S23.41XA Sprain of ribs, initial encounter (principal); F17.210 Nicotine dependence, cigarettes, uncomplicated; I10 Essential (primary) hypertension; X58.XXXA Exposure to other specified factors, initial encounter
CPT/HCPCS: 71101; 73030; 96374; 96375; 99284; J1885; J2919

== ENCOUNTER 2024-09-26 06:35 | Emergency (ER) | payer MEDICARE, SELFPAY ==
--- OUTSIDE RECORDS SUMMARY | 2024-09-26 06:40 | XMS_ITS ---
Author Organization Unknown Immunizations Date Vaccine DateAdministered TimeAdministered VaccineCode Dose Strength Unit Company Controller DueDate CptCode CvxCode ManufacturerCode LocationCode AdministeredBy 2024 12:00 :00 AM COVID-19 , mRNA, LNP-S, PF, maryana-suc ash, 30 mcg/0.3 mL 02/02/2024 12:00:00 AM 0000 0.300 000 mL mL 309 2024 12:00 :00 AM influenz a, recombin ant, injectab le, preserva tive free 02/02/2024 12:00:00 AM 0000 0.500 000 mL mL 155
--- OUTSIDE RECORDS SUMMARY | 2024-09-26 06:41 | XMS_ITS | Data Portability ---
Author Organization [facility] Address [address] [place] [id number] Assessment No assessment recorded. Plan of Treatment Reminders Order Date Submit Date Provider Last Modified By Organization Details Last Modified Time Details Appointments None recorded. Lab thyrotropin , QN, serum or plasma 2024 025 [facility], [address], [facility], [place], [address], 5 13:30:18 T4, free, serum 2024 025 [facility]er[facility], [address] [place] [address] 248, [address] [place], [address], 12:14:26 CMP, serum or plasma 2024 025 [facility], [address], [facility], [place], [address], 5 14:13:10 lipid panel, blood 2024 025 [facility], [address] [place], [facility], [place], [address], 5 14:13:12 CBC 2024 025 [facility], [address], [facility] [place], [address], 13:10:23 Referral None recorded. Procedures None recorded. Surgeries None recorded. Imaging MAMMO, screening, digital, bilateral [address] Imaging Orders, [address], [place], [address], 5 07:12:54 Medication Orders levocetiriz ine 5 mg tablet 2024 025 [facility], [address], [place], [address], 5 12:20:14 azithromyci n 250 mg tablet 2024 025 [facility], [address], [place], [address], 5 16:24:35 prednisone 20 mg tablet 2024 025 [facility], [address], [place], [address], 5 05:01:38 omeprazole 40 mg capsule,del ayed release 2024 025 dhaeffner 1 Not available 5 12:37:19 lisinopril 40 mg tablet 2024 025 [email or web address] 1 Not available 5 12:37:19 levothyroxi ne 200 mcg tablet 2024 025 [email or web address] 1 Not available 5 12:37:18 triamcinolo ne acetonide 0.1 % topical ointment 2024 025 [email or web address] 1 Not available 12:07:14 Patient TargetsNo targets recorded. Patient InstructionsNo instructions recorded. Reason for Referral None Reported. Results Created Date Observation Date Name Description Value Unit Range Abnormal Flag Note LastModifiedBy Organization Detail LastModifiedTime 08/29/19 08/28/2024 CBC WBC 6.9 x10 4.0-10 .5 Not Available [facility] [address] [facility], [place], [address], 08/28/2024 13:10:23 08/29/19 25 08/28/2024 CBC RBC 4.43 x10 3.50-5 .50 Not Available [facility] [address] [facility], [place], [address], 08/28/2024 13:10:23 08/29/19 25 08/28/2024 CBC HGB 14.2 g/dL 12.0-1 6.0 Not Available [facility] [address] [facility], [place], [address], 08/28/2024 13:10:23 08/29/19 25 08/28/2024 CBC HCT 44.4 % 37.0-4 7.0 Not Available [facility] [address] [facility], [place], [address], 08/28/2024 13:10:23 08/29/19 25 08/28/2024 CBC MCV 100.2 fL 80.0-9 9.9 high Not Available [facility] [address] [facility] [address], [place], [address], 08/28/2024 13:10:23 08/29/19 25 08/28/2024 CBC MCH 32.1 pg 27.0-3 2.0 high Not Available [facility] [address] [facility] [address], [place], [address], 08/28/2024 13:10:23 08/29/19 25 08/28/2024 CBC MCHC 32.0 g/dL 32.0-3 6.0 Not Available [facility] [address] [facility] [address] [facility], [place], [address], 08/28/2024 13:10:23 08/29/19 25 08/28/2024 CBC RDW 13.7 % 11.5-1 4.5 Not Available [facility] [address] [facility] [address] [facility], [place], [address], 08/28/2024 13:10:23 08/29/19 25 08/28/2024 CBC plt 308.5 x10 140.0- 451.0 Not Available [facility] [address] [facility], [place], [address], 08/28/2024 13:10:23 08/29/19 25 08/28/2024 CBC lymphocytes % 30.4 % 20.0-5 0.0 Not Available [facility] [address] [facility] 1, [place], [address], 08/28/2024 13:10:23 08/29/19 25 08/28/2024 CBC granulcytes % 60.3 % 30.0-7 0.0 Not Available [facility] [address] [facility] 1, [place], [address], 08/28/2024 13:10:23 08/29/19 25 08/28/2024 CBC monocytes % 8.4 % 2.0-16 .0 Not Available [facility] [address] [facility] 1, [place], [address], 08/28/2024 13:10:23 08/29/19 25 08/28/2024 CBC granulcytes# 4.2 x10 Not Bernadine ilable [facility] [address] [address], [place], [address], 08/28/2024 13:10:23 08/29/19 25 08/28/2024 CBC lymphocytes # 2.1 x10 Not Available [facility] [address] [facility] 1, [place], [address], 08/28/2024 13:10:23 08/29/19 25 08/28/2024 CBC monocytes # 0.6 x10 Not Avai lable [facility] [address] [facility] [address] [facility], [place], [address], 08/28/2024 13:10:23 08/29/19 25 08/28/2024 TSH TSH 1.61 uIU/m L 0.49-3 .82 Not Available [facility] [address] [facility], [place], [address], 08/28/2024 13:30:18 08/29/19 25 08/28/2024 CMP (FEMA LE) glucose 115.0 mg/dL 60.0-9 9.0 high Not Available [facility] [address] [facility], [place], [address], 08/28/2024 14:13:10 08/29/19 25 08/28/2024 CMP (FEMA LE) BUN (blood urea nitrogen) 10.0 mg/dL 10.0-2 6.0 Not Available [facility] [address] [facility], [place], [address], 08/28/2024 14:13:10 08/29/19 25 08/28/2024 CMP (FEMA LE) creatinine (serum) 0.8 mg/dL 0.4-1. 5 Not Available [facility] [address] [facility], [place], [address], 08/28/2024 14:13:10 08/29/19 25 08/28/2024 CMP (FEMA LE) BUN/creatini ne ratio 12.50 ratio Not Available [facility] [address] [facility] [address] [address], [place], [address], 08/28/2024 14:13:10 08/29/19 25 08/28/2024 CMP (FEMA LE) eGFR calculated 79.4 Not Available [facility] [address] [facility], [place], [address], 08/28/2024 14:13:10 08/29/19 25 08/28/2024 CMP (FEMA LE) total protein 7.9 g/dL 6.0-8. 5 Not Available [facility] [address] [facility], [place], [address], 08/28/2024 14:13:10 08/29/1908/28/2024 CMP (FEMA LE) total bilirubin 1.0 mg/dL 0.2-1. 3 Not Available [facility] [address] [facility], [place], [address], 08/28/2024 14:13:10 08/29/19 25 08/28/2024 CMP (FEMA LE) albumin 4.6 g/dL 3.5-5. 5 Not Available [facility] [address] [facility], [place], [address], 08/28/2024 14:13:10 08/29/19 25 08/28/2024 CMP (FEMA LE) globulin 3.3 calc Not Available [facility] [address] [facility], [place], [address], 08/28/2024 14:13:10 08/29/1908/28/2024 CMP (FEMA LE) AST (SGOT) 26.0 U/L 0.0-46 .0 Not Available [facility] [address] [facility], [place], [address], 08/28/2024 14:13:10 08/29/19 25 08/28/2024 CMP (FEMA LE) altv (SGPT) 18.0 U/L 13.0-6 9.0 normal Not Available [facility] [address] [facility], [place], [address], 08/28/2024 14:13:10 08/29/19 25 08/28/2024 CMP (FEMA LE) A/G ratio 1.4 ratio Not Available [facility] [address] [facility] 1, [place], [address], 08/28/2024 14:13:10 08/29/19 25 08/28/2024 CMP (FEMA LE) ALP phos 106.0 U/L 30.0-1 40.0 normal Not Available [facility] [address] [facility] 1, [place], [address], 08/28/2024 14:13:10 08/29/19 25 08/28/2024 CMP (FEMA LE) calcium 9.6 mg/dL 8.4-10 .5 Not Available [facility] [address] [facility] 1, [place], [address], 08/28/2024 14:13:10 08/29/19 25 08/28/2024 CMP (FEMA LE) sodium 138.0 mmol/ L 136.0- 145.0 Not Available [facility] [address] [facility], [place], [address], 08/28/2024 14:13:10 08/29/19 25 08/28/2024 CMP (FEMA LE) potassium 3.5 mmol/ L 3.5-5. 1 Not Available [facility] [address] [facility] 1, [place], [address], 08/28/2024 14:13:10 08/29/19 25 08/28/2024 CMP (FEMA LE) chloride 102.0 mmol/ L 98.0-1 10.0 normal Not Available [facility] [address] [facility], [place], [address], 08/28/2024 14:13:10 08/29/19 25 08/28/2024 CMP (FEMA LE) C02 25.0 mmol/ L 22.0-3 1.0 Not Available [facility] [address] [facility] 1, [place], [address], 08/28/2024 14:13:10 08/29/19 25 08/28/2024 CMP (FEMA LE) anion gap 11.0 calc Not Available [facility] [address] [facility] 1, [place], [address], 08/28/2024 14:13:10 08/29/19 25 08/28/2024 CMP (FEMA LE) osmolality 285.1 calc Not Available [facility] [address] [facility], [place], [address], 08/28/2024 14:13:10 08/29/19 25 08/28/2024 LIPID PROFI LE (FEMA LE) cholesterol 180.0 mg/dL 0.0-20 0.0 Not Available [facility] [address] [facility], [place], [address], 08/28/2024 14:13:12 08/29/19 25 08/28/2024 LIPID PROFI LE (FEMA LE) trig 109.0 mg/dL 0.0-15 0.0 Not Available [facility] [address] [facility], [place], [address], 08/28/2024 14:13:12 08/29/19 25 08/28/2024 LIPID PROFI LE (FEMA LE) HDL - direct 66.0 mg/dL >40.0 Not Available [facility] [address] [facility], [place], [address], 08/28/2024 14:13:12 08/29/19 25 08/28/2024 LIPID PROFI LE (FEMA LE) VLDL - direct 21.8 mg/dL Not Available [facility] [address] [facility] 1, [place], [address], 08/28/2024 14:13:12 08/29/19 25 08/28/2024 LIPID PROFI LE (FEMA LE) LDL - direct 92.2 mg/dL 0.0-13 0.0 Not Available [facility] [address] [facility] 1, [place], [address], 08/28/2024 14:13:12 08/29/19 25 08/29/2024 T4, FREE T4, free 1.5 NG/dL 0.8-1. 8 normal Not Available [employer] [facility] [address] [place], [address], 08/29/2024 12:14:26 Result Notes None recorded. Problems Name Problem SNOMED Code Status Onset Date Resolution Date Notes Provider Name and Address Organization Details Recorded Time Anxiety 15371632 Active 2024 RAJESH farias [facility] 20:19:03 Hypertensive disorder 84847201 Active 2024 RAJESH PASCAL [facility] 20:19:11 Gastroesophage al reflux disease 594086333 Active 2024 RAJESH PASCAL [facility] 20:19:06 Seasonal allergy 352260873 Active 2024 RAJESH PASCAL [facility] 14:58:17 Upper respiratory infection 84227393 Active 2024 RAJESH PASCAL [facility] 14:35:41 Acute upper respiratory infection 29572237 [facility] 5 14:39:53 Chest pain 66588104 Active 2024 [facility] 13:42:09 Dyspnea 488089679 Active 2024 RAJESH PASCAL [facility], [facility] 5 13:42:17 Problem Notes None recorded. Medical Equipment None Reported. Allergies Allergen ID Allergen Name Allergen Category Reaction Reaction Severity Criticality Documentation Date Start Date Code Code System Note Provider Name and Address Organization Details Recorded Time 92559 Augmentin medicatio n hives mild low 04/01/2024 23549 2 RxNorm NIDA WOODSON PA-C [address] [place] [address], [id number] [place] [address], [facility] 11:57:29 Medications Name Sig Start Date Stop [...] DAY ON DAY 2 THROUGH DAY 5 09/15 completed Not Available Not Available Not Available tizanidine 4 mg tablet TAKE 1 TABLET BY MOUTH EVERY 6 HOURS NEEDED FOR MUSCLE SPASTICIT Y .DO NOT EXCEED 3 DOSES PER 24 HOURS active Not Available Not Available No t Available benzonatate 200 mg capsule TAKE 1 CAPSULE BY MOUTH THREE TIMES DAILY FOR COUGH 04/01 completed Not Available Not Available Not Available clarithromy les 500 mg tablet TAKE 1 TABLET BY MOUTH TWICE DAILY 03/28 completed Not Available Not Available Not Available hydrocodone 5 mg-acetamin ophen 325 mg tablet TAKE 1 TABLET BY MOUTH EVERY 6 HOURS NEEDED FOR PAIN 09/16 completed Not Available Not Available Not Available meloxicam 15 mg tablet 03/28 completed Not Available Not Available Not Available lisinopril 20 mg tablet TAKE 1 TABLET BY MOUTH ONCE DAILY 03/28 completed Not Available Not Available Not Available prednisone 20 mg tablet TAKE 1 TABLET BY MOUTH THREE TIMES DAILY FOR 3 DAYS THEN 1 TWICE DAILY FOR 2 DAYS THEN 1 ONCE DAILY FOR 2 DAYS active Not Available Not Available No t Available ciprofloxac in 500 mg tablet TAKE [...] t Available levothyroxi ne 200 mcg tablet Take 1 tablet by mouth once daily 2024 active Not Available Not Available Not Avai lable hydrochloro thiazide 25 mg tablet TAKE 1 TABLET BY MOUTH ONCE DAILY 03/28 completed Not Available Not Available Not Available levofloxaci n 500 mg tablet TAKE 1 TABLET BY MOUTH ONCE DAILY 03/28 completed Not Available Not Available Not Available levofloxaci n 750 mg tablet TAKE 1 TABLET BY MOUTH ONCE DAILY FOR 5 DAYS 09/15 completed Not Available Not Available Not Available albuterol sulfate HFA 90 mcg/actuati on aerosol [...] propionate 50 mcg/actuati on nasal spray,suspe nsion [place] 1 spray every day by intranasa l [...] completed Not Available Not Available Not Available levocetiriz ine 5 mg tablet TAKE 1 TABLET BY MOUTH ONCE DAILY active Not Available Not Available No t Available diclofenac 1 % topical gel APPLY [...] and Address Organization Details Last Updated DateTime 165.1 cm 31 kg/m2 98394.1 8 g 99 % 99 % 77 /min 20 /min 98 [degF] 138/80 mm[Hg] [facility] 11:19:50 Date Recorded Body height Body mass index (BMI) Body weight Oxygen saturation Oxygen saturation in Arterial blood by Pulse oximetry Heart rate Respiratory rate Body temperature Systolic And Diastolic Provider Name and Address Organization Details Last Updated DateTime 5 165.1 cm 30.3 kg/m2 18029.8 1 g 98 % 98 % 72 /min 18 /min 98.5 [degF] 130/90 mm[Hg] RAJESH [facility] 5 11:59:55 Date Recorded Body height Body mass index (BMI) Body weight Oxygen saturation Oxygen saturation in Arterial blood by Pulse oximetry Heart rate Respiratory rate Body temperature Systolic And Diastolic Provider Name and Address Organization Details Last Updated DateTime 5 165.1 cm 31 kg/m2 92600.1 8 g 97 % 97 % 76 /min 20 /min 98.9 [degF] 136/80 mm[Hg] [facility] 5 11:41:46 Social History None recorded. Functional Status None recorded. Mental Status None recorded. Family History Nothing Reported. Medical History No medical history recorded. Gynecological HistoryNo gynecological history recorded. Obstetrics History GPAL:G 0 P 0 0 0 0 Immunizations Vaccine Type Date Status Note Provider Nam e and Address Organization Details Recorded Time zoster recombinant 3 completed NIDA WOODSON PA-C [address] [place], [address], [facility] 04/01/2024 12:00:58 zoster recombinant 3 completed NIDA WOODSON PA-C [address] [place], [address], [facility] 04/01/2024 12:00:58 COVID-19, mRNA, LNP-S, PF, 100 mcg/0.5mL dose or 50 mcg/0.25mL dose 2 completed NIDA WOODSON PA-C [address] [place], [address], [facility] 04/01/2024 12:00:58 COVID-19, mRNA, LNP-S, PF, 100 mcg/0.5mL dose or 50 mcg/0.25mL dose 1 completed NIDA WOODSON PA-C [address] [place] [address], [address], [facility] 04/01/2024 12:00:58 Pneumococcal conjugate PCV20, polysaccharide PYE128 conjugate, adjuvant, PF 3 completed NIDA WOODSON PA-C [address] [place] [address], [address], [facility] 04/01/2024 12:00:58 COVID-19, mRNA, LNP-S, bivalent, PF, 50 mcg/0.5 mL or 25mcg/0.25 mL dose 2 completed NIDA WOODSON PA-C [address] [place] [address], [address], [facility] 04/01/2024 12:00:58 Influenza, split virus, quadrivalent, PF 3 completed NIDA WOODSON PA-C [address] [place] [address], [address], [facility] 04/01/2024 12:00:58 Influenza, split virus, quadrivalent, PF 2 completed NIDA WOODSON PA-C [address] [place] [address], [address], [facility] 04/01/2024 12:00:58 Influenza, recombinant, trivalent, PF 4 completed Not Available [facility] 09/16/2024 11:14:49 COVID-19, mRNA, LNP-S, PF, maryana-sucrose, 30 mcg/0.3 mL 4 completed Not Available [facility] 09/16/2024 11:14:49 Past Encounters Encounter ID Performer Location Encounter Start Date Encounter Closed Date Diagnosis/Indication Diagnosis SNOMED-CT Code Diagnosis ICD10 Code Diagnosis Note [id number] NIDA WOODSON PA-C [facility] ([facility]) [address] [place] [phone] 04/01/2024 10:41:22 04/13/2024 07:12:54 Screening for malignant neoplasm of breast 203110885 Z12.39 Hypothyroidism 00402252 E03.9 Generalize d anxiety disorder 77834229 F41.1 Complex re gional pain syndrome 401989175 G90.511 nerve stimulator in neck wash uR upper ext affected Asthma 069618985 J45.90 9 Nicotine dependence 5629 4008 F17.200 Essential hypertension 40471903 I10 Gastroesop hageal reflux disease 332673327 K21.9 Atopic dermatitis 600404 01 L20.9 Screening for malignant neoplasm of colon 694017349 Z12.11 has a kit at home and will get it set [id number] NIDA WOODSON PA-C [facility] ([facility]) [address] [place] [phone] 08/28/2024 11:13:03 08/28/2024 13:49:48 Benign essential hypertension 7903772 I10 Acquired hypothyroidism 578531311 E03.9 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 She has nerve stimultor in spine for chronic painshe understand s we will not rx acute or chronic opiates for this pain Health Concerns Section Related Observation LastModified by Organization Detai ls LastModified Time None Recorded Concern Status LastModified by Organization Details LastModified Time None Recorded Advance Directives Directive None Recorded Payers Insurance Date Sequence Insurance Name Policy Number Policy Carrasquillo Covered Member ID Carrasquillo Member ID Guarantor Name 09/15/2024 1 [facility] PLAN - DUAL ELIGIBLE (MEDICARE REPLACEMENT/A DVANTAGE - HMO) Ruthie Salisbury [id number] [facility] 09/15/2024 [place] [facility] (INSTIT[facility] L) Ruthie Salisbury [id number] [facility] 09/15/2024 2 [place] [facility] [id number] [facility] Notes Date Note Type Note Provider Name [...] Alleviating Factors:analgesics; antihistamines establish with Diya seeing [facility] Dr. 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 [facility] to treat 2 yrs since implant. all from a work comp injury NIDA WOODSON PA-C [address] [place], [address], [facility] 04/12/2024 11:58:14 5 text/html FatigueReported bypatient.Quality:general ized [...] on the shelf ' NIDA WOODSON PA-C [address] [place], [address], [facility], [facility] 08/28/2024 13:46:18 5 text/html Musculoskeletal PainReported bypatient.Location:right shoulder Quality:sharp;tingling;du ll Severity:no change;driving impairment;interferes with sleep;interferes with work/school Duration:present <1 month Timing:constant; pain at night; gradualNotes:had a normal CXR and lab work at ER. no pneumonia.Feels popping in her ant rib cage with certain motions or her shoulder blade. ER FOLLOW UP 7-07-04 RIGHT SHOULDER/RIB PAIN USING THE PREDNISONE AND TIZANIDINE. CANT SLEEP DUE TO THE COUGH, AND NAUSEA VAN NO MORE HYDROCODONE NIDA WOODSON PA-C [address] [place], [address], [facility], [facility] 09/16/2024 13:58:51 OBGyn Episode No OBEpisode recorded.
[2024-09-26 07:03] VITALS: BP 118/85; PULSE 97; RESP 18; TEMP 36.6; O2SAT 97; BMI 31.8
--- NOTE | 2024-09-26 07:13 | W.ED.GENADLT ---
HPI - General Adult General: Chief complaint: General Medical Stated complaint: Rt. back pain Time Seen by Provider: 09/26/24 06:50 History of Present Illness: 53-year-old female presents emergency room with complaint of right-sided back pain. She was seen 2 weeks ago at that time she had complaints of rib pain that began or she has been coughing. Chest x-ray was unremarkable rib x-rays were also negative. She complained of some shoulder pain on the right, x-ray was also normal. Patient still complaining of right lower rib pain worse when she takes a deep breath states she has been short of breath has started coughing up mucus. She denies any hemoptysis. Associated symptoms: Deny chest pain, dyspnea or rash Related Data Home Medications ?Medication ?Instructions ?Recorded ?Confirmed Flovent HFA 2 puff PO BID pt states she got 11/15/20 03/01/23 this medication in [place] when she lived there states she is unsure of the mcg albuterol sulfate 90 mcg/actuation 2 puff inhalation Q4H PRN 11/15/20 03/01/23 aerosol inhaler (ProAir HFA) Shortness Of Breath aspirin 81 mg tablet,delayed 81 mg PO QAM 11/15/20 03/01/23 release levothyroxine 100 mcg tablet 200 mcg PO QAM 11/15/20 03/01/23 (Euthyrox) nortriptyline 10 mg capsule 10 mg PO BEDTIME 11/15/20 03/01/23 escitalopram oxalate 20 mg tablet 20 mg PO DAILY 11/23/22 03/01/23 tizanidine 2 mg capsule 2 mg PO Q8H PRN 11/23/22 03/01/23 Previous Rx's ?Medication ?Instructions ?Recorded diclofenac sodium 50 mg 50 mg PO Q12H PRN pain #20 tabs 08/09/21 tablet,delayed release Cock up splint #1 ea 11/23/22 diclofenac sodium 1 % topical gel 2 g topical QID #100 grams 11/23/22 (Voltaren Arthritis Pain) meloxicam 15 mg tablet 15 mg PO DAILY #30 tabs 11/23/22 cyclobenzaprine 10 mg tablet 10 mg PO TID PRN muscle spasm 1 04/23/23 Held on 09/12/24. month #90 tabs Instructions: Resume on 09/19/24. hydrocodone 5 mg-acetaminophen 325 1 tab PO Q6H PRN pain #10 tabs 09/12/24 mg tablet prednisone 20 mg tablet 20 mg PO TID #15 tabs 09/12/24 tizanidine 4 mg tablet 4 mg PO Q6H PRN muscle spasticity 09/12/24 #20 tabs Allergies Allergy/AdvReac Type Severity Reaction Status Date / Time amoxicillin (From Augmentin) Allergy Unknown unknown Verified 03/01/23 15:07 clavulanic acid (From Allergy Unknown unknown Verified 03/01/23 15:07 Augmentin) gabapentin Allergy ALGY-Anaphy Verified 03/01/23 15:07 laxis Review of Systems Const: Denies: fever(s) or chills Card: Denies: chest pain Resp: Denies: dyspnea GI: Denies: abdominal pain : Denies: dysuria, urinary frequency or urinary urgency Musc: Denies: neck pain or back pain Skin/Breast: Denies: rash PFSH ED PFSH: Medical History Hypertension Social History Smoking and tobacco/nicotine status: current every day tobacco/nicotine user cigarettes Alcohol intake: current Alcohol intake frequency: holidays/special occasions only Substance/Drug Use: never Physical Exam Const: GENERAL APPEARANCE: cooperative ORIENTATION/CONSCIOUSNESS: Yes awake, Yes oriented to person, Yes oriented to place and Yes oriented to time HENMT: COMMON NORMALS: normocephalic, atraumatic and hearing grossly normal bilaterally HEAD & SCALP: normocephalic and atraumatic Resp: COMMON NORMALS: normal respiratory effort, No retractions, No use of accessory muscles and clear to auscultation bilaterally AUSCULTATION: clear to auscultation bilaterally Cardio: COMMON NORMALS: regular rate, regular rhythm and No murmurs present (Cardio) RATE: regular rate RHYTHM: regular rhythm GI: COMMON NORMALS: Soft to palpation and No hepatosplenomegaly present AUSCULTATION: Yes normoactive bowel sounds PALPATION: Yes Soft to palpation, No Tenderness to palpation present (GI), No Guarding due to palpation present (GI) and Yes No hepatosplenomegaly present Extremity: COMMON NORMALS: normal to inspection, capillary refill normal, no clubbing, cyanosis or edema, no calf tenderness and no pedal edema Neuro: SENSORIUM/ORIENTATION: Yes oriented to person, Yes oriented to place and Yes oriented to time Skin: COMMON NORMALS: no rashes or lesions noted GENERAL SKIN EXAM: no rashes or lesions noted Course Vital Signs: Vital signs: Vital Signs Temperature 97.8 F 09/26/24 07:03 Pulse Rate 97 09/26/24 07:03 Respiratory Rate 18 09/26/24 07:03 Blood Pressure 118/85 09/26/24 07:03 Pulse Oximetry 97 09/26/24 07:03 Oxygen Delivery Me thod Room Air 09/26/24 07:03 MDM - General Adult Medical Decision Making Patient wanted to leave before the CT a was done. Encouraged her to follow-up with her primary care doctor we offered to have her stay encouraged her to stay but she demanded to leave. There is no fractures on the CTA there is no evidence of pneumothorax, question of a small infiltrate at the base of the left lung. however she is asymptomatic of this her white count is normal, her lung sounds are clear and she has no sign of pneumonia and no symptoms on the left side. Discussed with radiologist. He states it was a radiographic finding he is not certain it is a actual infiltrate the area of question is a small focal area. An area of pain overlying the 8th and 9th ribs in the mid anterior axillary line on the right there is no fracture. She should follow the instructions she was given follow-up with primary care provider. Patient was advised to follow-up with her primary care provider regarding the CTA of the chest. Medical Records I reviewed the patient's medical records. Lab Data I reviewed the patient's lab results. 09/26/24 07:30 09/26/24 07:30 Radiology Impressions Chest X-Ray 09/26/24 07:15 IMPRESSION: Stable chest with no acute abnormality. Chest CTA 09/26/24 08:10 IMPRESSION: 1. No evidence of pulmonary embolus. 2. Few hazy groundglass opacities in the LEFT lower lobe suspicious for pneumonitis. 3. Small to moderate esophageal hiatal hernia. 4. Prior thyroidectomy Laboratory Results WBC 4.02 10^3/uL (3.29-11.43) 09/26/24 07:30 RBC 3.94 10^6/uL (3.85-5.65) 09/26/24 07:30 Hgb 12.70 g/dL (11.27-16.99) 09/26/24 07:30 Hct 39.0 % (36-47) 09/26/24 07:30 MCV 99.0 fl (85-98) H 09/26/24 07:30 MCH 32.2 pg (27-33) 09/26/24 07:30 MCHC 32.6 g/dL (30-55) 09/26/24 07:30 RDW 15.5 % (12.1-15.1) H 09/26/24 07:30 Plt Count 228 10^3/cmm (157-399) 09/26/24 07:30 MPV 9.2 fL (7.4-10.4) 09/26/24 07:30 Neut % (Auto) 33.4 % 09/26/24 07:30 Lymph % (Auto) 57.2 % 09/26/24 07:30 [place] % (Auto) 6.5 % 09/26/24 07:30 Eos % (Auto) 1.5 % 09/26/24 07:30 Baso % (Auto) 0.7 % 09/26/24 07:30 Neut # (Auto) 1.34 10^3/uL (1.8-7.7) L 09/26/24 07:30 Lymph # (Auto) 2.3 10^3/uL (0.8-4.8) 09/26/24 07:30 [place] # (Auto) 0.3 10^3/uL (0.2-0.9) 09/26/24 07:30 Eos # (Auto) 0.1 10^3/uL (0.0-0.8) 09/26/24 07:30 Baso # (Auto) 0.0 10^3/uL (0.0-0.1) 09/26/24 07:30 Nucleated RBC % (auto) 0 % 09/26/24 07:30 Nucleated RBCs # 0.0 /100WBC 09/26/24 07:30 Sodium 141 mmol/L (136-145) 09/26/24 07:30 Potassium 3.6 mmol/L (3.5-5.1) 09/26/24 07:30 Chloride 101 mmol/L (98-107) 09/26/24 07:30 Carbon Dioxide 24 mmol/L (22-29) 09/26/24 07:30 Anion Gap 19.6 (5-19) H 09/26/24 07:30 BUN 13 mg/dL (6-20) 09/26/24 07:30 Creatinine 0.7 mg/dL (0.5-0.9) 09/26/24 07:30 GFR Calculation 87.2 mL/min (90-130) L 09/26/24 07:30 Glucose 114 mg/dL (65-115) 09/26/24 07:30 Calculated Osmolality 293 mOsm/kg (285-295) 09/26/24 07:30 Calcium 8.7 mg/dL (8.5-10.5) 09/26/24 07:30 Total Bilirubin 0.4 mg/dL (0.15-1.2) 09/26/24 07:30 AST 18 U/L (0-32) 09/26/24 07:30 ALT 14 U/L (0-33) 09/26/24 07:30 Alkaline Phosphatase 84 U/L (35-105) 09/26/24 07:30 Total Protein 7.0 g/dL (6.6-8.7) 09/26/24 07:30 Albumin 4.3 g/dL (3.5-5.2) 09/26/24 07:30 Globulin 2.7 g/dL (1.3-4.6) 09/26/24 07:30 Influenza A (PCR) Negative (Negative) 09/26/24 07:28 Influenza Type B (PCR) Negative (Negative) 09/26/24 07:28 RSV (PCR) Negative (Negative) 09/26/24 07:28 SARS-CoV-2 (PCR) Negative (Negative) 09/26/24 07:28 All radiology interpretation(s) finalized by discharge Discharge Plan Discharge Patient Disposition: Home Clinical Impression: Chest wall pain Condition: Stable Prescriptions: No Action escitalopram oxalate 20 mg tablet 20 mg PO DAILY tizanidine 2 mg capsule 2 mg PO Q8H PRN meloxicam 15 mg tablet 15 mg PO DAILY Qty: 30 0RF diclofenac sodium [Voltaren Arthritis Pain] 1 % gel 2 g topical QID Qty: 100 1RF Rx Instructions: apply to single elbow, wrist or hand; for hand includes palm/fingers/back of hand (DME) Cock up splint See Rx Instructions .Route .MEDSUPPLY Qty: 1 0RF Rx Instructions: As directed cyclobenzaprine 10 mg tablet 10 mg PO TID PRN (Reason: muscle spasm) 30 Days Qty: 90 0RF Aspir-81 81 mg Tablet,Delayed Release (Dr/Ec) 81 mg PO QAM Euthyrox 100 mcg tablet 200 mcg PO QAM nortriptyline 10 mg capsule 10 mg PO BEDTIME ProAir HFA 90 mcg/actuation Hfa Aerosol Inhaler 2 puff INHALATION Q4H PRN (Reason: Shortness Of Breath) Flovent HFA 2 puff PO BID diclofenac sodium 50 mg tablet,delayed release (DR/EC) 50 mg PO Q12H PRN (Reason: pain) Qty: 20 0RF tizanidine 4 mg tablet 4 mg PO Q6H PRN (Reason: muscle spasticity) Qty: 20 0RF Rx Instructions: do not exceed 3 doses per 24 hrs hydrocodone-acetaminophen 5-325 mg tablet 1 tab PO Q6H PRN (Reason: pain) Qty: 10 0RF prednisone 20 mg tablet 20 mg PO TID Qty: 15 0RF Rx Instructions: 1 p.o. 3 times daily x3 days, 1 p.o. twice daily x2 days, 1 p.o. daily x2 days Discharge Orders: Discharge ED (Routine); Ordered 09/26/24 Ordered By: Colt Calle Referrals: Teresita Masters PA [Primary Care Provider, [facility]] Discharge Diet: Usual diet Discharge Activity: Increase activity as tolerated Patient Instructions: Opioid Safety, Pain Management, Patient Portal & [place] Instructions Activity Restrictions/Additional Instructions: Thank you for choosing [facility] for your healthcare needs today. It is very important that you follow up as instructed or that you return to the Emergency Department should you have concerns or if your condition changes or worsens in any way. You were seen in the emergency room with continued right lower rib pain. You are given pain medications and a CT scan of your chest was done and you have elected to leave before the CT scan had been read. Follow-up with your primary care doctor regarding the results of the CT. Recommend you do not use the topical diclofenac you can either use meloxicam or the diclofenac oral that you were previously prescribed. Print Language: Welsh Coding Level of Care Code ED Non Destructive Testing Supervisor for Serenity Chaney
--- NOTE | 2024-09-26 07:15 | ECG_ITS ---
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 Measurements Intervals [place] Rate: 84 P: 54 [place]: 156 QRS: 25 QRSD: 82 T: 56 QT: 372 QTc: 441 Interpretive Statements SINUS RHYTHM NONSPECIFIC T-WAVE ABNORMALITY Compared to ECG 05/25/2022 00:21:39 T-wave abnormality now present Electronically Signed On 09-27-2024 14:10:58 CDT by Susan Miramontes M.D. [email or web address]
--- NOTE | 2024-09-26 07:15 | XR_ITS ---
WS: [id number] XR chest 1V portable [id number] REASON FOR EXAM: dyspnea/cough FINDINGS: The chest is unchanged compared to 09/12/2024. Cervical stimulator. Previous neck surgery with multiple clips. The heart and the mediastinum are within normal limits. Calcified granulomatous disease bilaterally. Normal heart size. No acute pulmonary parenchymal or pleural abnormality. Moderate degenerative spondylosis in the thoracic spine. XR/XR chest 1V portable [id number] IMPRESSION: Stable chest with no acute abnormality.
[2024-09-26 07:35] LABS: Hematocrit 39.0 % (36-47); Hemoglobin 12.70 g/dL (11.27-16.99); Mean Corpuscular HGB Conc 32.6 g/dL (30-55); Mean Corpuscular Hemoglobin 32.2 pg (27-33); Mean Corpuscular Volume 99.0 fl (85-98); Nucleated Red Blood Cells % 0 %; Platelet Count 228 10^3/cmm (157-399); Red Blood Count 3.94 10^6/uL (3.85-5.65); White Blood Count 4.02 10^3/uL (3.29-11.43)
[2024-09-26 07:51] LABS: Alanine Aminotransferase 14 U/L (0-33); Albumin Level 4.3 g/dL (3.5-5.2); Alkaline Phosphatase 84 U/L (35-105); Anion Gap 19.6 (5-19); Aspartate Amino Transferase 18 U/L (0-32); Blood Urea Nitrogen 13 mg/dL (6-20); Calcium 8.7 mg/dL (8.5-10.5); Carbon Dioxide 24 mmol/L (22-29); Chloride 101 mmol/L (98-107); Creatinine Clr Calc Pharmacy 92.9687; Globulin 2.7 g/dL (1.3-4.6); Glucose 114 mg/dL (65-115); Osmolality Calculated 293 mOsm/kg (285-295); Potassium 3.6 mmol/L (3.5-5.1); Sodium 141 mmol/L (136-145); Total Protein 7.0 g/dL (6.6-8.7)
--- NOTE | 2024-09-26 08:10 | CT_ITS ---
WS: [id number] CTA OF THE CHEST WITH PULMONARY EMBOLISM PROTOCOL TECHNIQUE: High-resolution contrast enhanced CTA of the chest with coronal and sagittal reformatted images with pulmonary embolism protocol. MIP images are also reviewed. CLINICAL INFORMATION: Chest pain shortness of breath COMPARISON: None. DLP: 409.[address] scans at [facility] use at least one of these dose optimization techniques: automated exposure control; mA and/or kV adjustment per patient size (includes targeted exams where dose is matched to clinical indication); or iterative reconstruction. FINDINGS: Proximal main pulmonary arteries are normal. Normal segmental and subsegmental pulmonary arteries. No evidence of pulmonary embolus. A few hazy groundglass opacities in the LEFT lower lobe. Recommend correlation for pneumonitis. Slight dependent atelectasis in both lung bases. Normal caliber thoracic aorta. No mediastinal or hilar lymphadenopathy. No axillary lymphadenopathy. Small to moderate esophageal hiatal hernia. Prior thyroidectomy. Partially visualized spinal stimulator leads. CT/CT angio chest PE protcl [id number] IMPRESSION: 1. No evidence of pulmonary embolus. 2. Few hazy groundglass opacities in the LEFT lower lobe suspicious for pneumo nitis. 3. Small to moderate esophageal hiatal hernia. 4. Prior thyroidectomy
[2024-09-26] MEDS: iohexol 350 mg/mL 500 mL Btl (per mL) IV (08:42)
[2024-09-26 08:47] LABS: Respiratory Syncytial Virus Ce NEGATIVE (Negative); SARS-CoV-2 PCR NEGATIVE (Negative)
== END 2024-09-26 09:00 | disposition home or self-care (01) ==
PROVIDERS: Emergency Provider Family Medicine; PCP Physician Assistant
DX: R07.89 Other chest pain (principal); Z11.52 Encounter for screening for COVID-19; F17.210 Nicotine dependence, cigarettes, uncomplicated; I10 Essential (primary) hypertension
CPT/HCPCS: 36415; 71045; 71275; 80053; 85025; 87637; 93005; 96374; 96375; 99285; J0780; J1885

== ENCOUNTER 2024-12-21 18:30 | Inpatient (IN) | payer MEDICARE, SELFPAY ==
[2024-12-21] VITALS (9 sets, daily range): BP systolic 118–140; BP diastolic 64–93; PULSE 74–130; RESP 14–23; TEMP 36.3–36.7; O2SAT 92–100
--- NOTE | 2024-12-21 18:42 | ECG_ITS ---
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
--- NOTE | 2024-12-21 18:42 | XRR_ITS ---
PROCEDURE INFORMATION: Exam: XR Chest Exam date and time: 12/21/2024 7:11 PM Age: 54 years old Clinical indication: Shortness of breath; Prior surgery; Surgery date: 6+ months; Surgery type: Thyroid; Additional info: SOB TECHNIQUE: Imaging protocol: Radiologic exam of the chest. Views: 1 view. COMPARISON: CT angio chest PE protcl [id number] 09/26/2024 8:28 AM FINDINGS: Tubes, catheters and devices: There is a wire device overlying the right medial chest likely external to the patient. Lungs: Unremarkable. No consolidation. Pleural spaces: Unremarkable. No pleural effusion. No pneumothorax. Heart/Mediastinum: Unremarkable. No cardiomegaly. Bones/joints: Unremarkable. XR/XR chest 1V portable [id number] IMPRESSION: No acute cardiopulmonary process demonstrated.
--- NOTE | 2024-12-21 18:47 | W.ED.SOB ---
HPI - SOB/Dyspnea General: Chief Complaint: Shortness of Breath/Dyspnea Stated Complaint: RESP. DISTRESS History of Present Illness: HPI Narrative: 54-year-old female with altered mental status and shortness of breath. EMS was called for respiratory distress, and the patient was very short of breath on their arrival. She was also combative, and not cooperative with any treatment whatsoever. She was trying to refuse care at one point. She eventually agreed to oxygen therapy, and a breathing treatment. At 1 point, she was apneic for over a minute. EMS prepared for intubation, but she spontaneously began respirations again. She appears intoxicated. She is somewhat paranoid. She is not really answering any questions appropriately. She is alert. She is obviously a poor historian at this point. Related Data Home Medications ?Medication ?Instructions ?Recorded ?Confirmed Flovent HFA 2 puff PO BID pt states she got 11/15/20 03/01/23 this medication in [place] when she lived there states she is unsure of the mcg albuterol sulfate 90 mcg/actuation 2 puff inhalation Q4H PRN 11/15/20 03/01/23 aerosol inhaler (ProAir HFA) Shortness Of Breath aspirin 81 mg tablet,delayed 81 mg PO QAM 11/15/20 03/01/23 release levothyroxine 100 mcg tablet 200 mcg PO QAM 11/15/20 03/01/23 (Euthyrox) nortriptyline 10 mg capsule 10 mg PO BEDTIME 11/15/20 03/01/23 escitalopram oxalate 20 mg tablet 20 mg PO DAILY 11/23/22 03/01/23 tizanidine 2 mg capsule 2 mg PO Q8H PRN 11/23/22 03/01/23 Previous Rx's ?Medication ?Instructions ?Recorded diclofenac sodium 50 mg 50 mg PO Q12H PRN pain #20 tabs 08/09/21 tablet,delayed release Cock up splint #1 ea 11/23/22 diclofenac sodium 1 % topical gel 2 g topical QID #100 grams 11/23/22 (Voltaren Arthritis Pain) meloxicam 15 mg tablet 15 mg PO DAILY #30 tabs 11/23/22 cyclobenzaprine 10 mg tablet 10 mg PO TID PRN muscle spasm 1 04/23/23 Held on 09/12/24. month #90 tabs Instructions: Resume on 09/19/24. hydrocodone 5 mg-acetaminophen 325 1 tab PO Q6H PRN pain #10 tabs 09/12/24 mg tablet prednisone 20 mg tablet 20 mg PO TID #15 tabs 09/12/24 tizanidine 4 mg tablet 4 mg PO Q6H PRN muscle spasticity 09/12/24 #20 tabs Allergies Allergy/AdvReac Type Severity Reaction Status Date / Time amoxicillin (From Augmentin) Allergy Unknown unknown Verified 03/01/23 15:07 clavulanic acid (From Allergy Unknown unknown Verified 03/01/23 15:07 Augmentin) gabapentin Allergy ALGY-Anaphy Verified 03/01/23 15:07 laxis [facility] PFSH: Medical History Hypertension Social History Smoking and tobacco/nicotine status: current every day tobacco/nicotine user cigarettes Alcohol intake: current Alcohol intake frequency: holidays/special occasions only Substance/Drug Use: never Physical Exam Const: COMMON NORMALS: alert EXAM LIMITATIONS: altered mental status GENERAL APPEARANCE: anxious, combative and ill appearing NUTRITIONAL APPEARANCE: overweight ORIENTATION/CONSCIOUSNESS: Yes oriented to person; not oriented to place and not oriented to time HENMT: COMMON NORMALS: normocephalic, atraumatic and Normal external nose present HEAD & SCALP: normocephalic and atraumatic FACE & SINUS: face symmetric NOSE: Normal external nose present Eye: COMMON NORMALS: Equal, round and reactive pupils present and EOMs intact bilaterally PUPIL: Yes Equal, round and reactive pupils present Chest: CHEST: Yes Symmetrical chest wall rise Resp: EFFORT & INSPECTION: Yes tachypneic and Yes respiratory distress AUSCULTATION: rhonchi Cardio: COMMON NORMALS: regular rhythm RATE: tachycardic RHYTHM: regular rhythm Extremity: COMMON NORMALS: no pedal edema Neuro: MELANY COMA SCALE: document GCS findings Melany coma scale eye opening: Spontaneous Melany coma scale verbal response: Confused [place] coma scale motor response: Obey commands Melany coma scale total score: 14 SENSORIUM/ORIENTATION: Yes alert, Yes oriented to person, No oriented to place and No oriented to time SPEECH: abnormal speech Details: slurred Course Vital Signs: Vital signs: Vital Signs Temperature 98.1 F 12/21/24 18:33 Pulse Rate 95 12/21/24 22:43 Respiratory Rate 16 12/21/24 21:10 Blood Pressure 126/93 12/21/24 22:43 Pulse Oximetry 92 12/21/24 22:43 Oxygen Delivery Me thod Nasal Cannula 12/21/24 21:39 Oxygen Flow Rate 4 12/21/24 21:39 MDM - SOB/Dyspnea Medical Decision Making This patient is hypoxic. She is not cooperating with treatment. She seems confused and likely intoxicated. She is alert however. She is tachypneic. Saturations are 92 to 95% on 4 L at this point. Venous blood gases obtained, shows a pH of 7.38 with a pCO2 of 48. Patient is still not cooperative with treatment. She has pulled multiple IVs and her delirium. She is somewhat paranoid still. Vital signs have been stable on oxygen. CBC is normal. BMP is not remarkable. Lactic acid is slightly elevated at 2.4. Her liver enzymes are normal. Urine drug screen is negative. Swabs are negative. Head CT is negative. Chest x-ray is negative. Her blood alcohol level is critical at 478. She has likely aspirated given her lung sounds, given rise to her hypoxia. She has received 2 L bolus, IV thiamine. She will have to go to the ICU, as withdrawal is a certainty at this point. She will need critical care level nursing ratios as well. She is given IV Haldol, 3 mg here with little improvement in her cantankerousness. She is asked multiple times to go home. At 478, her blood alcohol level is not conducive to her making her own medical decisions at this point. 96-hour hold paperwork has been filled out in case she does try to leave. Hospitalist is aware, and has seen the patient in the ER. She will go to ICU. Lab Data 12/21/24 18:54 12/21/24 18:00 Labs/Radiology: Radiology Impressions Chest X-Ray 12/21/24 18:42 IMPRESSION: No acute cardiopulmonary process demonstrated. Head CT 12/21/24 19:40 IMPRESSION: No acute intracranial abnormality. Laboratory Results WBC 6.26 10^3/uL (3.29-11.43) 12/21/24 18:54 RBC 4.30 10^6/uL (3.85-5.65) 12/21/24 18:54 Hgb 13.80 g/dL (11.27-16.99) 12/21/24 18:54 Hct 42.4 % (36-47) 12/21/24 18:54 MCV 98.6 fl (85-98) H 12/21/24 18:54 MCH 32.1 pg (27-33) 12/21/24 18:54 MCHC 32.5 g/dL (30-55) 12/21/24 18:54 RDW 12.9 % (12.1-15.1) 12/21/24 18:54 Plt Count 254 10^3/cmm (157-399) 12/21/24 18:54 MPV 9.7 fL (7.4-10.4) 12/21/24 18:54 Neut % (Auto) 30.5 % 12/21/24 18:54 Lymph % (Auto) 60.7 % 12/21/24 18:54 [place] % (Auto) 6.5 % 12/21/24 18:54 Eos % (Auto) 1.0 % 12/21/24 18:54 Baso % (Auto) 1.0 % 12/21/24 18:54 Neut # (Auto) 1.91 10^3/uL (1.8-7.7) 12/21/24 18:54 Lymph # (Auto) 3.8 10^3/uL (0.8-4.8) 12/21/24 18:54 [place] # (Auto) 0.4 10^3/uL (0.2-0.9) 12/21/24 18:54 Eos # (Auto) 0.1 10^3/uL (0.0-0.8) 12/21/24 18:54 Baso # (Auto) 0.1 10^3/uL (0.0-0.1) 12/21/24 18:54 Nucleated RBC % (auto) 0 % 12/21/24 18: Nucleated RBCs # 0.0 /100WBC 12/21/24 18:54 Specimen Type Venous 12/21/24 18:55 Sample Site Not specified 12/21/24 18:55 ABG pH 7.38 (7.35-7.45) 12/21/24 18:55 ABG pCO2 48.1 mmHg (35-45) H 12/21/24 18:55 ABG pO2 58.6 mmHg (80.0-100.0) L 12/21/24 18:55 ABG HCO3 28.5 mmol/L (22-26) H 12/21/24 18:55 ABG Base Excess 2.5 mmol/L (-2.0-2.0) H 12/21/24 18:55 Eddie Test N/a 12/21/24 18:55 VBG pH 7.38 (7.32-7.42) 12/21/24 18:55 VBG pCO2 48.1 mmHg (41-51) 12/21/24 18:55 VBG pO2 58.6 mmHg (25-40) H 12/21/24 18:55 VBG HCO3 28.5 mmol/L (24-28) H 12/21/24 18:55 VBG Base Excess 2.5 mmol/L (-3.0-3.0) 12/21/24 18:55 VBG Hematocrit 44.3 % (37-47) 12/21/24 18:55 Hematocrit 44.3 % (37-47) 12/21/24 18:55 Hgb O2 Saturation 81.7 % (95-100) L 12/21/24 18:55 Carboxyhemoglobin 5.1 %THgb (0.4-20.1) 12/21/24 18:55 Methemoglobin 0.9 % (0.4-1.5) 12/21/24 18:55 Total Hemoglobin 14.4 g/dL (12-16) 12/21/24 18:55 O2 Delivery Device Nc 12/21/24 18:55 Clinical Operations Manager ID Amh 12/21/24 18:55 Sodium 145 mmol/L (136-145) 12/21/24 18:00 Potassium 4.2 mmol/L (3.5-5.1) 12/21/24 18:00 Chloride 103 mmol/L (98-107) 12/21/24 18:00 Carbon Dioxide 24 mmol/L (22-29) 12/21/24 18:00 Anion Gap 22.2 (5-19) H 12/21/24 18:00 BUN 13 mg/dL (6-20) 12/21/24 18:00 Creatinine 0.7 mg/dL (0.5-0.9) 12/21/24 18:00 GFR Calculation 86.9 mL/min (90-130) L 12/21/24 18:00 Glucose 116 mg/dL (65-115) H 12/21/24 18:00 Calculated Osmolality 301 mOsm/kg (285-295) H 12/21/24 18:00 Lactic Acid 2.4 mmol/L (0.5-2.2) H 12/21/24 18:00 Calcium 9.0 mg/dL (8.5-10.5) 12/21/24 18:00 Total Bilirubin 0.2 mg/dL (0.15-1.2) 12/21/24 18:00 AST 26 U/L (0-32) 12/21/24 18:00 ALT 19 U/L (0-33) 12/21/24 18:00 Alkaline Phosphatase 100 U/L (35-105) 12/21/24 18:00 Troponin T Baseline < 6 ng/L (0-10) 12/21/24 18:00 NT-Pro-B Natriuret Pep < 36 pg/mL (0-125) 12/21/24 18:00 Total Protein 7.0 g/dL (6.6-8.7) 12/21/24 18:00 Albumin 4.8 g/dL (3.5-5.2) 12/21/24 18:00 Globulin 2.2 g/dL (1.3-4.6) 12/21/24 18:00 Urine Color Yellow (Yellow) 12/21/24 19:40 Urine Appearance Clear (CLEAR) 12/21/24 19:40 Urine pH 6 (5-7) 12/21/24 19:40 Ur Specific [place] 1.015 (1.005-1.030) 12/21/24 19:40 Urine Protein Neg (Negative) 12/21/24 19:40 Urine Glucose (UA) Norm (Normal) 12/21/24 19:40 Urine Ketones Negative (Negative) 12/21/24 19:40 Urine Blood Neg (Negative) 12/21/24 19:40 Urine Nitrate Negative (Negative) 12/21/24 19:40 Urine Bilirubin Neg (Negative) 12/21/24 19:40 Urine Urobilinogen Norm mg/dL (Negative) 12/21/24 19:40 Ur Leukocyte Esterase Negative (Negative) 12/21/24 19:40 Amorphous Sediment Not Reportable 12/21/24 19:40 Urine Opiates Screen Negative ng/mL (Negative) 12/21/24 19:40 Ur Barbiturates Screen Negative ng/mL (Negative) 12/21/24 19:40 Ur Phencyclidine Scrn Negative ng/mL (Negative) 12/21/24 19:40 Ur Amphetamines Screen Negative ng/mL (Negative) 12/21/24 19:40 U Benzodiazepines Scrn Negative ng/mL (Negative) 12/21/24 19:40 Urine Cocaine Screen Negative ng/mL (Negative) 12/21/24 19:40 U Marijuana (THC) Screen Negative ng/mL (Negative) 12/21/24 19:40 Ethyl Alcohol 478 mg/dL (0-10) H* 12/21/24 18:00 Influenza A (PCR) Negative (Negative) 12/21/24 19:30 Influenza Type B (PCR) Negative (Negative) 12/21/24 19:30 RSV (PCR) Negative (Negative) 12/21/24 19:30 SARS-CoV-2 (PCR) Negative (Negative) 12/21/24 19:30 All radiology interpretation(s) finalized by discharge Critical Care Time Critical Care Time: Critical Care Time: Yes Total Critical Care Time: 35 Attestation: This case had a high probability of a clinically significant, sudden, or life threatening deterioration of this patient's condition which required my full and direct attention, intervention and personal management. Time is independent of any procedures performed. Discharge Plan Discharge Patient Disposition: Admitted As Inpatient Admit Provider: Dilcia Barakat Clinical Impression: Alcohol intoxication, Aspiration pneumonitis, Acute hypoxic respiratory failure Condition: Serious Coding Level of Care Code ED Dog Races Manager for Serenity Chaney
[2024-12-21 19:02] LABS: Hematocrit 42.4 % (36-47); Hemoglobin 13.80 g/dL (11.27-16.99); Mean Corpuscular HGB Conc 32.5 g/dL (30-55); Mean Corpuscular Hemoglobin 32.1 pg (27-33); Mean Corpuscular Volume 98.6 fl (85-98); Nucleated Red Blood Cells % 0 %; Platelet Count 254 10^3/cmm (157-399); Red Blood Count 4.30 10^6/uL (3.85-5.65); White Blood Count 6.26 10^3/uL (3.29-11.43)
[2024-12-21 19:05] LABS: Lactic Sepsis W/Reflex 2.4 mmol/L (0.5-2.2)
[2024-12-21 19:06] LABS: ABG PCO2 48.1 mmHg (35-45); ABG PH Result 7.38 (7.35-7.45); Arterial Blood Gas Hematocrit 44.3 % (37-47); Base Excess VBG 2.5 mmol/L (-3.0-3.0); Blood Gas Operator Identificat AMH; Blood Gas Sample Site Not specified; Blood Gas Sample Type Venous; Carboxyhemoglobin 5.1 %THgb (0.4-20.1); HCO3 ABG 28.5 mmol/L (22-26); HCO3 VBG 28.5 mmol/L (24-28); Methemoglobin 0.9 % (0.4-1.5); PCO2 VBG 48.1 mmHg (41-51); PO2 ABG 58.6 mmHg (80.0-100.0); PO2 VBG 58.6 mmHg (25-40); Venous Blood Gas Hematocrit 44.3 % (37-47); pH VBG 7.38 (7.32-7.42)
--- OUTSIDE RECORDS SUMMARY | 2024-12-21 19:07 | XMS_ITS | Data Portability ---
Author Organization [facility] Address [address] [place] [phone] Assessment No assessment recorded. Plan of Treatment Reminders Order Date Submit Date Provider Last Modified By Organization Details Last Modified Time Details Appointments None recorded. Lab thyrotropin , QN, serum or plasma 2024 025 [facility], [address], [facility] 1, [place], [address], 5 13:30:18 T4, free, serum 2024 025 [employer] [facility], [address] [place] [address] 248, [address] [place], [address], 5 12:14:26 CMP, serum or plasma 2024 025 [facility], [address], [facility] 1, [place], [address], 5 14:13:10 lipid panel, blood 2024 025 [facility], [address] [place], [facility] 1, [place], [address], 5 14:13:12 CBC 2024 025 [facility], [address], [facility] [address], [address], 13:10:23 Referral None recorded. Procedures None recorded. Surgeries None recorded. Imaging MAMMO, screening, digital, bilateral [address] [facility] Orders, [address], [place], [address], 5 07:12:54 Medication Orders levocetiriz ine 5 mg tablet 2024 025 [facility], [address], [place], [address], 5 12:20:14 azithromyci n 250 mg tablet 2024 025 [facility], [address], [place], [address], 5 16:24:35 prednisone 20 mg tablet 2024 025 [facility] 15, [address], [place], [address], 5 18:48:26 omeprazole 40 mg capsule,del ayed release 2024 [...] 6.9 x10 4.0-10 .5 Not Available [facility] [address] [facility] 1, [place], [address], 08/28/2024 13:10:23 08/29/19 25 08/28/2024 CBC RBC 4.43 x10 3.50-5 .50 Not Available [facility] [address] [facility] 1, [place], [address], 08/28/2024 13:10:23 08/29/19 25 08/28/2024 CBC HGB 14.2 g/dL 12.0-1 6.0 Not Available [facility] [address] [facility] 1, [place], [address], 08/28/2024 13:10:23 08/29/19 25 08/28/2024 CBC HCT 44.4 % 37.0-4 7.0 Not Available [facility] [address] [facility] 1, [place], [address], 08/28/2024 13:10:23 08/29/19 25 08/28/2024 CBC MCV 100.2 fL 80.0-9 9.9 high Not Available [facility] [address] [facility] 1, [place], [address], 08/28/2024 13:10:23 08/29/19 25 08/28/2024 CBC MCH 32.1 pg 27.0-3 2.0 high Not Available [facility] [address] [place] [facility] 1, [place], [address], 08/28/2024 13:10:23 08/29/19 25 08/28/2024 CBC MCHC 32.0 g/dL 32.0-3 6.0 Not Available [facility] [address] [place] [facility] 1, [place], [address], 08/28/2024 13:10:23 08/29/19 25 08/28/2024 CBC RDW 13.7 % 11.5-1 4.5 Not Available [facility] [address] [facility] 1, [place], [address], 08/28/2024 13:10:23 08/29/19 25 08/28/2024 CBC plt 308.5 x10 140.0- 451.0 Not Available [facility] [address] [facility], [place], [address], 08/28/2024 13:10:23 08/29/19 25 08/28/2024 CBC lymphocytes % 30.4 % 20.0-5 0.0 Not Available [facility] [address] [facility] 1, [place], [address], 08/28/2024 13:10:23 08/29/19 25 08/28/2024 CBC granulcytes % 60.3 % 30.0-7 0.0 Not Available [facility] [address] [facility] 1, [place], [address], 08/28/2024 13:10:23 08/29/19 25 08/28/2024 CBC monocytes % 8.4 % 2.0-16 .0 Not Available [facility] [address] [facility] 1, [place], [address], 08/28/2024 13:10:23 08/29/19 25 08/28/2024 CBC granulcytes# 4.2 x10 Not Bernadine ilable [facility] [address] [address], [place], [address], 08/28/2024 13:10:23 08/29/19 25 08/28/2024 CBC lymphocytes # 2.1 x10 Not Available [facility] [address] [facility] 1, [place], [address], 08/28/2024 13:10:23 08/29/19 25 08/28/2024 CBC monocytes # 0.6 x10 Not Avai lable [facility] [address] [facility] 1, [place], [address], 08/28/2024 13:10:23 08/29/19 25 08/28/2024 TSH TSH 1.61 uIU/m L 0.49-3 .82 Not Available [facility] [address] [place] [facility] 1, [place], [address], 08/28/2024 13:30:18 08/29/19 25 08/28/2024 CMP (FEMA LE) glucose 115.0 mg/dL 60.0-9 9.0 high Not Available [facility] [address] [facility], [place], [address], 08/28/2024 14:13:10 08/29/19 25 08/28/2024 CMP (FEMA LE) BUN (blood urea nitrogen) 10.0 mg/dL 10.0-2 6.0 Not Available [facility] [address] [facility] [address] [facility], [place], [address], 08/28/2024 14:13:10 08/29/19 25 08/28/2024 CMP (FEMA LE) creatinine (serum) 0.8 mg/dL 0.4-1. 5 Not Available [facility] [address] [facility], [place], [address], 08/28/2024 14:13:10 08/29/19 25 08/28/2024 CMP (FEMA LE) BUN/creatini ne ratio 12.50 ratio Not Available [facility] [address] [facility] [address] [address], [place], [address], 08/28/2024 14:13:10 08/29/19 25 08/28/2024 CMP (FEMA LE) eGFR calculated 79.4 Not Available [facility] [address] [facility], [place], [address], 08/28/2024 14:13:10 08/29/19 25 08/28/2024 CMP (FEMA LE) total protein 7.9 g/dL 6.0-8. 5 Not Available [facility] [address] [facility] 1, [place], [address], 08/28/2024 14:13:10 08/29/1908/28/2024 CMP (FEMA LE) total bilirubin 1.0 mg/dL 0.2-1. 3 Not Available [facility] [address] [facility] 1, [place], [address], 08/28/2024 14:13:10 08/29/19 25 08/28/2024 CMP (FEMA LE) albumin 4.6 g/dL 3.5-5. 5 Not Available [facility] [address] [facility] 1, [place], [address], 08/28/2024 14:13:10 08/29/19 25 08/28/2024 CMP (FEMA LE) globulin 3.3 calc Not Available [facility] [address] [facility] 1, [place], [address], 08/28/2024 14:13:10 08/29/1908/28/2024 CMP (FEMA LE) AST (SGOT) 26.0 U/L 0.0-46 .0 Not Available [facility] [address] [facility] 1, [place], [address], 08/28/2024 14:13:10 08/29/19 25 08/28/2024 CMP (FEMA LE) altv (SGPT) 18.0 U/L 13.0-6 9.0 normal Not Available [facility] [address] [facility], [place], [address], 08/28/2024 14:13:10 08/29/19 25 08/28/2024 CMP (FEMA LE) A/G ratio 1.4 ratio Not Available [facility] [address] [facility] 1, [place], [address], 08/28/2024 14:13:10 08/29/19 25 08/28/2024 CMP (FEMA LE) ALP phos 106.0 U/L 30.0-1 40.0 normal Not Available [place] [facility] [address] [facility] 1, [place], [address], 08/28/2024 14:13:10 08/29/19 25 08/28/2024 CMP (FEMA LE) calcium 9.6 mg/dL 8.4-10 .5 Not Available [facility] [address] [facility] 1, [place], [address], 08/28/2024 14:13:10 08/29/19 25 08/28/2024 CMP (FEMA LE) sodium 138.0 mmol/ L 136.0- 145.0 Not Available [facility] [address] [facility] 1, [place], [address], 08/28/2024 14:13:10 08/29/19 25 08/28/2024 CMP (FEMA LE) potassium 3.5 mmol/ L 3.5-5. 1 Not Available [facility] [address] [facility] 1, [place], [address], 08/28/2024 14:13:10 08/29/19 25 08/28/2024 CMP (FEMA LE) chloride 102.0 mmol/ L 98.0-1 10.0 normal Not Available [facility] [address] [facility] 1, [place], [address], 08/28/2024 14:13:10 08/29/19 25 08/28/2024 CMP (FEMA LE) C02 25.0 mmol/ L 22.0-3 1.0 Not Available [facility] [address] [facility] 1, [place], [address], 08/28/2024 14:13:10 08/29/19 25 08/28/2024 CMP (FEMA LE) anion gap 11.0 calc Not Available [facility] [address] [facility] 1, [place], [address], 08/28/2024 14:13:10 08/29/19 25 08/28/2024 CMP (FEMA LE) osmolality 285.1 calc Not Available [facility] [address] [facility] 1, [place], [address], 08/28/2024 14:13:10 08/29/19 25 08/28/2024 LIPID PROFI LE (FEMA LE) cholesterol 180.0 mg/dL 0.0-20 0.0 Not Available [facility] [address] [facility] 1, [place], [address], 08/28/2024 14:13:12 08/29/19 25 08/28/2024 LIPID PROFI LE (FEMA LE) trig 109.0 mg/dL 0.0-15 0.0 Not Available [facility] [address] [facility] 1, [place], [address], 08/28/2024 14:13:12 08/29/19 25 08/28/2024 LIPID PROFI LE (FEMA LE) HDL - direct 66.0 mg/dL >40.0 Not Available [facility] [address] [facility] 1, [place], [address], 08/28/2024 14:13:12 08/29/19 25 08/28/2024 LIPID PROFI LE (FEMA LE) VLDL - direct 21.8 mg/dL Not Available [facility] [address] [facility] 1, [place], [address], 08/28/2024 14:13:12 08/29/19 25 08/28/2024 LIPID PROFI LE (FEMA LE) LDL - direct 92.2 mg/dL 0.0-13 0.0 Not Available [facility] [address] [facility] 1, [place], [address], 08/28/2024 14:13:12 08/29/19 25 08/29/2024 T4, FREE T4, free 1.5 NG/dL 0.8-1. 8 normal Not Available [employer] [facility] [address] [place], [address], 08/29/2024 12:14:26 Result Notes None recorded. Problems Name Problem SNOMED Code Status Onset Date Resolution Date Notes Provider Name and Address Organization Details Recorded Time Anxiety 01664766 Active 2024 RAJESH farias [facility] 5 20:19:03 Hypertensiv e disorder 86300923 Active 2024 RAJESH PASCAL [facility] 20:19:11 Gastroesoph ageal reflux disease 312212832 Active 2024 RAJESH PASCAL [facility] 20:19:06 Seasonal allergy 686571752 Active 2024 RAJESH PASCAL [facility] 14:58:17 Upper respiratory infection 03105297 Active 2024 RAJESH PASCAL [facility], LRicardoL.CRicardo 5 14:35:41 Acute upper respiratory infection 27389362 Active 2024 RAJESH ALBRECHTMARILU [facility], [facility] 5 14:39:53 Chest pain 03538617 Active 2024 RAJESH ALBRECHTMARILU [facility] 13:42:09 Dyspnea 739822625 Active 2024 RAJESHZENAIDA ALBRECHTMARILU [facility] 5 13:42:17 Pain of right shoulder joint 8034867908766 9100 Active 2024 RAJESHZENAIDA FLORESMARILU [facility] 5 13:21:41 Chest wall pain 784658562 Active 2024 RAJESHZENAIDA ALBRECHTMARILU [facility] 5 13:21:48 Pain of right shoulder region Active 2024 RAJESHZENAIDA PASCAL [facility] 5 13:22:15 Nausea 090144484 Active 2024 RAJESH PASCAL [facility] 18:51:24 Problem Notes None recorded. Medical Equipment None Reported. Allergies Allergen ID Allergen Name Allergen Category Reaction Reaction Severity Criticality Documentation Date Start Date Code Code System Note Provider Name and Address Organization Details Recorded Time 60475 Augmentin medicatio n hives mild low 04/01/2024 94897 2 RxNorm NIDA WOODSON PA-C [address] [place] [address], [phone], [facility] 11:57:29 Medications Name Sig Start Date Stop [...] EVERY 6 HOURS NEEDED FOR MUSCLE SPASM active Not Available Not Available No t Available azithromyci n 250 mg tablet TAKE [...] THEN 1 ONCE DAILY FOR 2 DAYS 10/25 completed Not Available Not Available Not Available [...] No t Available lisinopril 40 mg tablet Take 1 tablet by mouth once daily 2024 active Not Available Not Available Not Avai lable ondansetron 4 mg disintegrat ing tablet DISSOLVE 1 TABLET IN MOUTH EVERY 6 TO 8 HOURS NEEDED FOR NAUSEA AND VOMITING 2024 active Not Available Not Available Not Avai lable fluticasone propionate 50 mcg/actuati on nasal spray,suspe nsion USE 1 SPRAY(S) IN EACH NOSTRIL ONCE DAILY active Not Available Not Available No t Available naproxen 500 mg tablet 03/28 completed Not [...] Updated DateTime 5 165.1 cm 31 kg/m2 57879.1 8 g 99 % 99 % 77 /min 20 /min 98 [degF] 138/80 mm[Hg] [facility] 5 11:19:50 Date Recorded Body height Body mass index (BMI) Body weight Oxygen saturation Oxygen saturation in Arterial blood by Pulse oximetry Heart rate Respiratory rate Body temperature Systolic And Diastolic Provider Name and Address Organization Details Last Updated DateTime 5 165.1 cm 30.3 kg/m2 06218.8 1 g 98 % 98 % 72 /min 18 /min 98.5 [degF] 130/90 mm[Hg] [facility] 5 11:59:55 Date Recorded Body height Body mass index (BMI) Body weight Oxygen saturation Oxygen saturation in Arterial blood by Pulse oximetry Heart rate Respiratory rate Body temperature Systolic And Diastolic Provider Name and Address Organization Details Last Updated DateTime 5 165.1 cm 31 kg/m2 37473.1 8 g 97 % 97 % 76 /min 20 /min 98.9 [degF] 136/80 mm[Hg] [facility] 5 11:41:46 Social History None recorded. Functional Status None recorded. Mental Status None recorded. Family History Nothing Reported. Medical History No medical history recorded. Gynecological HistoryNo gynecological history recorded. Obstetrics History GPAL:G 0 P 0 0 0 0 Immunizations Vaccine Type Date Status Note Provider Nam e and Address Organization Details Recorded Time zoster recombinant 3 completed NIDA WOODSON PA-C [address] [place], [address], [facility] 04/01/2024 12:00:58 zoster recombinant 3 completed NIDA WOODSON PA-C [address] [place] [address], [address], [facility] 04/01/2024 12:00:58 COVID-19, mRNA, LNP-S, PF, 100 mcg/0.5mL dose or 50 mcg/0.25mL dose 2 completed NIDA WOODSON PA-C [address] [place] [address], [address], [facility] 04/01/2024 12:00:58 COVID-19, mRNA, LNP-S, PF, 100 mcg/0.5mL dose or 50 mcg/0.25mL dose 1 completed NIDA WOODSON PA-C [address] [place] [address], [address], [facility] 04/01/2024 12:00:58 Pneumococcal conjugate PCV20, polysaccharide [id number] conjugate, adjuvant, PF 3 completed NIDA WOODSON PA-C [address] [place] [address], [address], [facility] 04/01/2024 12:00:58 COVID-19, mRNA, LNP-S, bivalent, PF, 50 mcg/0.5 mL or 25mcg/0.25 mL dose 2 completed NIDA WOODSON PA-C [address] [place], [address], [facility] 04/01/2024 12:00:58 Influenza, split virus, quadrivalent, PF 3 completed NIDA WOODSON PA-C [address] [place] [address], [address], [facility] 04/01/2024 12:00:58 Influenza, split virus, quadrivalent, PF 2 completed NIDA WOODSON PA-C [address] [place], [address], [facility] 04/01/2024 12:00:58 Influenza, recombinant, trivalent, PF 4 completed Not Available [facility] 09/16/2024 11:14:49 COVID-19, mRNA, LNP-S, PF, maryana-sucrose, 30 mcg/0.3 mL 4 completed Not Available [facility] 09/16/2024 11:14:49 Past Encounters Encounter ID Performer Location Encounter Start Date Encounter Closed Date Diagnosis/Indication Diagnosis SNOMED-CT Code Diagnosis ICD10 Code Diagnosis IMO Codes Diagnosis Note [id number] NIDA WOODSON PA-C [facility]) [address] [place] [phone] 04/01/2024 10:41:22 04/13/2024 07:12:54 Screening for malignant neoplasm of breast 551580845 Z12.39 Hypothyroidism 78534528 E03.9 Generalize d anxiety disorder 89084756 F41.1 Complex re gional pain syndrome 533050454 G90.511 nerve stimulator in neck wash uR upper ext affected Asthma 464458575 J45.90 9 Nicotine dependence 5629 4008 F17.200 Essential hypertension 93823299 I10 Gastroesop hageal reflux disease 948390034 K21.9 Atopic dermatitis 622964 01 L20.9 Screening for malignant neoplasm of colon 586283558 Z12.11 has a kit at home and will get it set [id number] NIDA WOODSON PA-C [facility] ([facility]) [address] [place] [phone] 08/28/2024 11:13:03 08/28/2024 13:49:48 Benign essential hypertension 1968988 I10 3379 Acquired hypothyroidism 945618188 E03.9 47628 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 COMMUNITY PLAN - DUAL ELIGIBLE (MEDICARE REPLACEMENT/A DVANTAGE - HMO) Ruthie [place] [id number] [facility] 09/15/2024 [place] [facility] (INSTITUTION[facility] L) Ruthie [place] Rose [id number] [facility] 09/15/2024 2 [place] [facility] [id number] [facility] Notes Date Note Type Note Provider Name and Address Organization Details Recorded Time 04/01/19 25 text/htm l Upper Respiratory SymptomsReported by PatientUpper Respiratory SymptomsFor quality, patient reportsproductive cough,sharp throat pain,congested, andnasal discharge. For context, patient reportssick contactandsmoker. For location, patient reportschest. For severity, patient reportsmoderate. For duration, patient reportssymptoms lasting less than 2 weeks. For onset/timing, patient reportssudden(5 days ago). For alleviating factors, patient reportsanalgesicsandantihistamin es. HypertensionReported by PatientHPIFor quality, patient reportspressureandweakness. For context, patient reportsexertionandemotional stress. For aggravating factors, patient reportssalt intake. For associated symptoms, patient reportsshortness of breath,fatigue, anddecreased exercise tolerance. For severity, patient reportsgrade 1 (130-139/80-89). For duration, patient reportshas noted for years. For onset/timing, patient reportsgradual onset. For alleviating factors, patient reportsmedication. For self care, patient reportschecks blood pressure at home (range 140/80-)andblood pressure goal: 120/70. establish with Diya seeing [facility] Dr. 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 STL Wash U to treat 2 yrs since implant. all from a work comp injury NIDA WOODSON PA-C [address] [place], [address], [facility], LEyalCRicardo 04/12/2024 11:58:14 08/29/19 25 text/htm l Upper Respiratory SymptomsReported by PatientUpper Respiratory SymptomsFor quality, patient reportsproductive cough,congested, andnasal discharge. For context, patient reportssmokerandallergiesbut reportsno sick contactsandno foreign travel. For location, patient reportshead,chest,throat,nasal,e ars, andface. For severity, patient reportsmoderate. For duration, patient reportssymptoms lasting less than 2 weeks(4 days). For onset/timing, patient reportssudden. For alleviating factors, patient reportsantihistaminesanddeconges tant(neti pot). FatigueReported by PatientHPIFor quality, patient reportsgeneralized. For severity, patient reportsmoderate. For duration, patient reportschronicandconstant. For timing, patient reportsgradual. I am miserable with this head cold x 4 days not sure if I have covid or sinus infection.I would like to have thyroid checked . Dr Enrico Branch old pcp used to check it but hasn't been checked in a while.I need my Lisinopril refilled I didnt get it and they put it back on the shelf ' NIDA WOODSON PA-C [address] [place], [address], [facility], Kenji. 08/28/2024 13:46:18 09/17/19 25 text/htm l Musculoskeletal PainReported by PatientHPIFor quality, patient reportssharp,tingling, anddull. For severity, patient reportsdriving impairment,interferes with sleep, andinterferes with work/schoolbut reportsno change. For location, patient reportsright shoulder. For duration, patient reportspresent <1 month. For timing, patient reportsconstant,pain at night, andgradual.had a normal CXR and lab work at ER. no pneumonia.Feels popping in her ant rib cage with certain motions or her shoulder blade. ER FOLLOW UP 7--25 RIGHT SHOULDER/RIB PAIN USING THE PREDNISONE AND TIZANIDINE. CANT SLEEP DUE TO THE COUGH, AND NAUSEA VAN NO MORE HYDROCODONE NIDA WOODSON PA-C [address] [place], [address], [facility], [place] 09/16/2024 13:58:51 OBGyn Episode No OBEpisode recorded.
[2024-12-21 19:12] LABS: Reflex Lactate Order REFLEX LACTIC ORDERD; Troponin(5th) Baseline < 6 ng/L (0-10)
[2024-12-21 19:23] LABS: Alanine Aminotransferase 19 U/L (0-33); Albumin Level 4.8 g/dL (3.5-5.2); Alkaline Phosphatase 100 U/L (35-105); Blood Urea Nitrogen 13 mg/dL (6-20); Calcium 9.0 mg/dL (8.5-10.5); Carbon Dioxide 24 mmol/L (22-29); Chloride 103 mmol/L (98-107); Globulin 2.2 g/dL (1.3-4.6); Glucose 116 mg/dL (65-115); NT Pro B Type Natriuretic Pept < 36 pg/mL (0-125); Osmolality Calculated 301 mOsm/kg (285-295); Sodium 145 mmol/L (136-145); Total Protein 7.0 g/dL (6.6-8.7)
[2024-12-21 19:25] LABS: Anion Gap 22.2 (5-19); Aspartate Amino Transferase 26 U/L (0-32); Potassium 4.2 mmol/L (3.5-5.1)
[2024-12-21 19:26] LABS: Alcohol Level 478 mg/dL (0-10)
--- NOTE | 2024-12-21 19:40 | CTR_ITS ---
PROCEDURE INFORMATION: Exam: CT Head Without Contrast Exam date and time: 12/21/2024 7:57 PM Age: 54 years old Clinical indication: Altered mental status/memory loss; PT is from home, EMS states PT called for help for SOB. EMS reports ETOH. pt very nervous and would not sit still, PT reports claustrophobia and fear of scanners; Additional info: AMS TECHNIQUE: Imaging protocol: Computed tomography of the head without contrast. Radiation optimization: All CT scans at this facility use at least one of these dose optimization techniques: automated exposure control; mA and/or kV adjustment per patient size (includes targeted exams where dose is matched to clinical indication); or iterative reconstruction. COMPARISON: CT facial bones w con [id number] 11/15/2020 12:51 PM RADIATION DOSE METRICS: Total DLP (mGy-cm): 1217.68 FINDINGS: Brain: Normal. No hemorrhage. Unremarkable white matter. No mass effect. Cerebral ventricles: No ventriculomegaly. Paranasal sinuses: Mild ethmoid and maxillary sinus disease. Mastoid air cells: Visualized mastoid air cells are well aerated. Bones: Unremarkable. No acute fracture. Soft tissues: Unremarkable. CT/CT head wo con* [id number] IMPRESSION: No acute intracranial abnormality.
[2024-12-21 19:55] LABS: PCP Screen Urine Negative (Negative)
[2024-12-21 20:02] LABS: Add Urine Microscopic? NO
[2024-12-21 20:17] LABS: Glucose Urine UA Norm (Normal); Nitrate Urine Negative (Negative); Specific Gravity, Urine 1.015 (1.005-1.030)
[2024-12-21 20:18] LABS: Charge for UA Resulting for Rev
[2024-12-21 20:23] LABS: Respiratory Syncytial Virus Ce NEGATIVE (Negative); SARS-CoV-2 PCR NEGATIVE (Negative)
[2024-12-21] MEDS: thiamine 100 mg/mL 2mL SDV IVP (20:40)
[2024-12-21] MEDS: haloperidol inj 5 mg/mL INJ 1 mL 3 MG IVP (20:50)
[2024-12-21] MEDS: ondansetron 2 mg/ML SDV 2 mL 4 MG IVP (21:37)
--- NOTE | 2024-12-21 22:11 | PM.HP ---
Providers/Chief Complaint Admitting Physician: Dilcia Barakat MD--patient seen before 12 midnight Primary Care Provider: Teresita Masters Chief Complaint: RESP. DISTRESS History of Present Illness Ruthie Walker is a 54 year old female with medical history significant for hypertension, alcoholism who presented to the emergency room in respiratory distress with saturation in the 70s on room air. Patient does not wear oxygen at home but requiring 4 L nasal cannula oxygen to keep up with saturation of 94. Patient verbalized having thrown up at home she is found to be very intoxicated with alcohol chest x-ray was significant for aspiration pneumonitis leading to most likely patient's acute hypoxic respiratory failure. Patient alcohol level is 478 mg/dL lactic acid was 2.4, troponin unremarkable BNP less than 36. Patient had abused alcohol and choice alcohol drink is vodka patient had had according to her 2 vodka drink Patient is maintaining airways but very drunk Review of Systems Narrative: System review upon 10 organ review we are significant for respiratory distress in the respiratory system otherwise unremarkable Medications/Allergies Home Medications ?Medication ?Instructions ?Recorded ?Confirmed ?Last Taken ?Type Flovent HFA 2 puff PO BID pt states she got 11/15/20 03/01/23 Unknown History this medication in [place] when she lived there states she is unsure of the mcg albuterol sulfate 90 mcg/actuation 2 puff inhalation Q4H PRN 11/15/20 03/01/23 Unknown History aerosol inhaler (ProAir HFA) Shortness Of Breath aspirin 81 mg tablet,delayed 81 mg PO QAM 11/15/20 03/01/23 11/14/20 History release levothyroxine 100 mcg tablet 200 mcg PO QAM 11/15/20 03/01/23 11/14/20 History (Euthyrox) nortriptyline 10 mg capsule 10 mg PO BEDTIME 11/15/20 03/01/23 11/13/20 History diclofenac sodium 50 mg 50 mg PO Q12H PRN pain #20 tabs 08/09/21 03/01/23 Unknown Rx tablet,delayed release Cock up splint #1 ea 11/23/22 03/01/23 Unknown Rx diclofenac sodium 1 % topical gel 2 g topical QID #100 grams 11/23/22 03/01/23 Unknown Rx (Voltaren Arthritis Pain) escitalopram oxalate 20 mg tablet 20 mg PO DAILY 11/23/22 03/01/23 Unknown History meloxicam 15 mg tablet 15 mg PO DAILY #30 tabs 11/23/22 03/01/23 Unknown Rx tizanidine 2 mg capsule 2 mg PO Q8H PRN 11/23/22 03/01/23 Unknown History cyclobenzaprine 10 mg tablet 10 mg PO TID PRN muscle spasm 1 04/23/23 Unknown Rx Held on 09/12/24. month #90 tabs Instructions: Resume on 09/19/24. hydrocodone 5 mg-acetaminophen 325 1 tab PO Q6H PRN pain #10 tabs 09/12/24 Unknown Rx mg tablet prednisone 20 mg tablet 20 mg PO TID #15 tabs 09/12/24 Unknown Rx tizanidine 4 mg tablet 4 mg PO Q6H PRN muscle spasticity 09/12/24 Unknown Rx #20 tabs Allergies Allergy/AdvReac Type Severity Reaction Status Date / Time amoxicillin (From Augmentin) Allergy Unknown unknown Verified 03/01/23 15:07 clavulanic acid (From Allergy Unknown unknown Verified 03/01/23 15:07 Augmentin) gabapentin Allergy ALGY-Anaphy Verified 03/01/23 15:07 laxis PFSH Acute PFSH: Medical History Hypertension Social History Smoking and tobacco/nicotine status: current every day tobacco/nicotine user cigarettes Alcohol intake: current Alcohol intake frequency: holidays/special occasions only Substance/Drug Use: never Vitals/I&O/Wt Last Vital Signs Temp 98.1 F 12/21/24 18:33 Pulse 91 12/21/24 21:39 Resp 16 12/21/24 21:10 BP 119/64 12/21/24 21:39 Pulse Ox 95 12/21/24 21:39 O2 Del Method Nasal Cannula 12/21/24 21:39 O2 Flow Rate 4 12/21/24 21:39 12/21/24 12/21/24 12/21/24 06:59 14:59 22:59 Intake Total 1000 / 1000 Balance 1000 / 1000 Physical Exam Narrative: Currently patient likes to sleep and quite paranoid as to what is going on as to what we are doing to her things explained she is not able to make any decision leaving because she is very altered with alcohol. Patient is on 96-hour hold because of this. Patient in much respiratory distress with a sat of 70s on room air upon presentation need to go to ICU to follow-up with care and also patient is at risk for impending DT HEENT normocephalic/atraumatic neck neck is supple cardiovascular heart rate is regular lungs are pretty much clear abdomen soft nontender nondistended unremarkable extremities are intact no edema has good pulses neurology has no focality lab studies lab studies reviewed and noted. Data 12/21/24 18:54 12/21/24 18:00 Micro: Microbiology 12/21/24 18:56 Blood Culture - Preliminary Blood SPECIMEN COLLECTED 12/21/24 18:54 Blood Culture - Preliminary Blood SPECIMEN COLLECTED A&P Assessment and plan 1. Acute hypoxic respiratory failure: 2. Aspiration pneumonitis: 3. Alcohol intoxication: 4. Dehydration: 5. Hypertension: Plan: #1 Acute hypoxic respiratory failure secondary to aspiration pneumonitis - Admit to ICU for close monitoring - Continue supplemental oxygen of 4 L keeping the sats 95 or greater - Initiate antibiotics azithromycin and clindamycin - Continue nebulizing treatment per order - Gentle hydration at this time #2 Nausea and vomiting - Patient did this outside of the hospital and had aspirated - Have antiemetic in place for the use of patient - Can continue to follow through and monitor #3 Alcohol use and abuse with intoxication - [facility] protocol initiated - Patient at risk for DTs - Last drink was yesterday with alcohol level today been over 400 - ICU placement is very good and important - Patient is on 96-hour hold because she was trying to leave earlier when she is still very altered and not able To make a decision for herself #4 Dehydration -Continue to rehydrate #5 GI and DVT prophylaxis in place PDMP PDMP Reviewed: Not Reviewed Attestations Medical Necessity Statement*: Patient with much alcohol on board with level greater than 400 still tremulous at risk for impending DTs and also had aspiration pneumonitis will need at least 2 midnights to optimize care prior to going home. Coding Level of Care Code Acute Code for [facility] Diagnoses Acute hypoxic respiratory failure J96.01 Aspiration pneumonitis J69.0 Alcohol intoxication F10.929 Dehydration E86.0 Hypertension I10
--- NOTE | 2024-12-21 22:27 | PC.NURSE ---
96 HH Pt served with copy of 96 hour hold. Pt alert and awake, uncooperative and belligerent. Pt loudly yelling and repeating herself, what are you all doing here? what is this about? . Pt educated multiple times about blood alcohol level being too high for safe discharge. Re-education needed. Right paper added to personal belonging bag, pt dressed out in green scrub and PSA @ bedside. Hospitalist at bedside for examination.
[2024-12-21] MEDS: heparin 5,000 unit/mL INJ 1 mL 5000 UNIT SUBCUT (23:27)
[2024-12-22] VITALS (25 sets, daily range): BP systolic 102–183; BP diastolic 69–117; PULSE 73–127; RESP 11–17; TEMP 36.9–37; O2SAT 90–97
[2024-12-22 03:48] LABS: Hematocrit 38.2 % (36-47); Hemoglobin 12.50 g/dL (11.27-16.99); Mean Corpuscular HGB Conc 32.7 g/dL (30-55); Mean Corpuscular Hemoglobin 32.8 pg (27-33); Mean Corpuscular Volume 100.3 fl (85-98); Nucleated Red Blood Cells % 0 %; Platelet Count 228 10^3/cmm (157-399); Red Blood Count 3.81 10^6/uL (3.85-5.65); White Blood Count 4.71 10^3/uL (3.29-11.43)
[2024-12-22 04:14] LABS: Alanine Aminotransferase 14 U/L (0-33); Albumin Level 3.9 g/dL (3.5-5.2); Alkaline Phosphatase 74 U/L (35-105); Anion Gap 15.9 (5-19); Aspartate Amino Transferase 19 U/L (0-32); Blood Urea Nitrogen 10 mg/dL (6-20); Calcium 7.7 mg/dL (8.5-10.5); Carbon Dioxide 24 mmol/L (22-29); Chloride 111 mmol/L (98-107); Creatinine Clr Calc Pharmacy 106.7467; Globulin 1.9 g/dL (1.3-4.6); Glucose 81 mg/dL (65-115); Magnesium 2.0 mg/dL (1.7-2.3); Osmolality Calculated 302 mOsm/kg (285-295); Potassium 3.9 mmol/L (3.5-5.1); Sodium 147 mmol/L (136-145); Total Protein 5.8 g/dL (6.6-8.7)
[2024-12-22] MEDS: multivitamin therapeutic Tablet 1 TAB PO (04:28)
[2024-12-22 05:04] LABS: Lipase 62 U/L (13-60)
[2024-12-22 05:21] LABS: Vitamin B12 341 pg/mL (232-1245)
[2024-12-22] MEDS: heparin 5,000 unit/mL INJ 1 mL 5000 UNIT SUBCUT ×2 (10:04→23:24)
[2024-12-22 11:01] LABS: PCP Screen Urine Negative (Negative)
[2024-12-22] MEDS: cefTRIAXone 1,000 mg SDV 1000 MG IVP (11:37)
[2024-12-22] MEDS: dextrose 5%-sod chloride 0.9% 1,000 ML 75 ML IV (11:37)
[2024-12-22 11:50] LABS: Estmated Average Glucose 105; Hemoglobin A1C 5.3 % (4.0-6.0)
[2024-12-22 12:02] LABS: Iron 29 ug/dL (37-145); Thyroid Stimulating Hormone 15.33 uIU/mL (0.27-4.20); Total Iron Binding Capacity 295 mcg/dl; Unsaturated Iron Binding 266 ug/dL (112-347); Vitamin B12 345 pg/mL (232-1245)
[2024-12-22 12:10] LABS: MRSA PCR OZH (swab) NOT DETECTED (Not Detecte)
--- NOTE | 2024-12-22 12:49 | W.PM.NPUH&PS ---
Providers/Chief Complaint Admitting Physician: Dilcia Barakat MD Primary Care Provider: Teresita Masters Chief Complaint: RESP. DISTRESS HPI NPU History of Present Illness Ruthie Walker is a 54 year old female who presented to the emergency department with the following report: Chief Complaint: Shortness of Breath/Dyspnea Stated Complaint: RESP. DISTRESS History of Present Illness: HPI Narrative: 54-year-old female with altered mental status and shortness of breath. EMS was called for respiratory distress, and the patient was very short of breath on their arrival. She was also combative, and not cooperative with any treatment whatsoever. She was trying to refuse care at one point. She eventually agreed to oxygen therapy, and a breathing treatment. At 1 point, she was apneic for over a minute. EMS prepared for intubation, but she spontaneously began respirations again. She appears intoxicated. She is somewhat paranoid. She is not really answering any questions appropriately. She is alert. She is obviously a poor historian at this point. She was admitted to the ICU for definitive treatment of those issues. A psychiatric consult was requested to identify whether she can be discharged and the 96-hour hold could be rescinded or whether she needed ongoing psychiatric and addiction treatment. She presented to the emergency department clearly intoxicated with breathing difficulties and a blood alcohol of 478. Her UDS was unremarkable. She is unknown to [facility] psychiatry inpatient or outpatient services and presented reporting that she is only on Xanax as needed for anxiety. She denied any previous inpatient psychiatric hospitalizations and denied any significant outpatient services. She reports that she has been a person with anxiety probably much of her life. She reports however that 6 years ago she had a injury at work. He works for [employer]. She reports that after that accident trying to deal with the sequela as best he can. She and her family moved to [place] in the past year or so and she ended up having a falling out with her mother and her daughter such that they do not speak at this time. She reports that the stress of that along with not working and having the problems from her injury which led to a implanted device for spinal cord stimulation. There is significant challenges with use of her right hand and arm and although the evidence seems fairly clear the organization is not wanting to settle at this time. This is a source of great stress. She endorsed tobacco use since her teenage years and reports that she has tried to quit on 3 occasions with some success 2 of the time she quit was during pregnancies. She reports alcohol use starting in her adolescence may be 16 or so. She reports that she has never really had a time of significant alcohol but reports it has been period time that she quit altogether but she could not explain why that was something she felt the need to do. She reports that she probably drinks weekly and just usually has a couple drinks some kind of vodka mixed drink. We discussed the difficulty 1 would have a blood alcohol that high initially she was in denial about being aware that it should have been higher based on her behavior but then she endorsed that she had been upset with a new significant other with whom she has only been with maybe a month. To endorse having some anger towards him and acknowledged normally she has drinks and a short small glass with some ice that and after having the first 1 she might have a second but that this time she actually used the tumbler. But then after discussing that she went back to saying she could not recall. She denies marijuana or any other illicit drug use in her life. She denied smoking alcohol treatment past DUIs though she did have a significant pause before answering that question and denied any drug and alcohol charges of any sort in her life. She denied any major depression during her life denying feelings of helplessness, hopelessness or worthlessness, denied sadness, passive wish or previous episodes of feeling suicidal. She denied history of self-injurious behavior. She endorsed symptoms consistent with generalized anxiety disorder with constant worrying and denied a major social aspect of it. She denied paranoia, hallucinations or nightmares and flashbacks. She denied any need to make any medication changes or any need for inpatient today. Past psychiatric history: As above. Substance abuse history: Family history: She denied mental health or addiction issues on either side of family denied any history of suicide attempts or by suicide in the family. Developmental history: She denied any issue with her or delivery or her mother's health during the process. She reports she learned to walk and talk about her developmental milestones of time. She denied any speech therapy, learning support/education classes during her formative years. Psychosocial history: She reports her parents together with good form. Together 5 was probably 13. She reports that they had 6 children together but that included a set of twins but shortly after . She is the youngest of the remaining 4. And neither of her parents have any half-siblings. She did not endorse neglect but did report that she was by herself a lot and had independence in her childhood. She denied emotional physical or sexual abuse. She denied any department of welfare services or child welfare services involvement in her childhood or that she ever lived with anyone other than her biological parents prior to adulthood. She denied any specific traumatic events in her life. She endorsed graduating from high school and having some college. She endorsed being a heterosexual with her longest relationship being 10 years. She denied ever officially being but she had 2 children a set of daughters. One is 32 and one 27 and she is currently estranged from one of them. She reports that they will speak and that 1 lives in [place]. Her children were born vaginally. Never been in the endorses being a [employer]ondoism. 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 He currently lives in a house by herself and has a very large dog that is likely part break. Knees. Legal history: Denied. Medical history: She endorses the injury leading to the spinal cord stimulator as a major challenge she has but also endorses having a total thyroidectomy and being on levothyroxine. Past fracture/injury to her right wrist. Endorses that her. Started when she was 13 when she was a premature into menopause starting around 43 and she has not had periods or symptoms of menopause for over 5 years but her period stopped in her late 40s. Meds NPU Home Medications ?Medication ?Instructions ?Recorded ?Confirmed ?Last Taken ?Type Flovent HFA 2 puff PO BID pt states she got 11/15/20 12/22/24 Unknown History this medication in [place] when she lived there states she is unsure of the mcg albuterol sulfate 90 mcg/actuation 2 puff inhalation Q4H PRN 11/15/20 12/22/24 1 Day Ago History aerosol inhaler (ProAir HFA) Shortness Of Breath ~12/21/24 2 puffs levothyroxine 100 mcg tablet 200 mcg PO QAM 11/15/20 12/22/24 1 Day Ago History (Euthyrox) ~12/21/24 nortriptyline 10 mg capsule 10 mg PO BEDTIME PRN sleep 11/15/20 12/22/24 11/13/20 History escitalopram oxalate 20 mg tablet 20 mg PO DAILY PRN Anxiety 11/23/22 12/22/24 1 Week Ago History ~12/15/24 tizanidine 4 mg tablet 4 mg PO Q6H PRN muscle spasticity 09/12/24 12/22/24 Unknown Rx #20 tabs lisinopril 40 mg tablet (Zestril) 40 mg PO 1XD 12/22/24 12/22/24 1 Day Ago History ~12/21/24 meloxicam 15 mg tablet 15 mg PO DAILY PRN pain 12/22/24 12/22/24 Unknown History omeprazole 40 mg capsule,delayed 40 mg PO 1XD 12/22/24 12/22/24 1 Day Ago History release ~12/21/24 Allergies Allergy/AdvReac Type Severity Reaction Status Date / Time amoxicillin (From Augmentin) Allergy Unknown unknown Verified 03/01/23 15:07 clavulanic acid (From Allergy Unknown unknown Verified 03/01/23 15:07 Augmentin) gabapentin Allergy ALGY-Anaphy Verified 03/01/23 15:07 laxis PFSH NPU PFSH: Medical History (Updated 12/23/24 @ 07:34 by Thang Ferrera MD) Alcohol abuse Alcohol intoxication Hypertension Surgical History (Updated 12/22/24 @ 15:10 by Luca Grubbs MD) History of implanted electronic device Hx of thyroidectomy Hx of tonsillectomy History of surgery on right wrist TFCC [address] [facility] Dr. Richard Garrison Social History Smoking and tobacco/nicotine status: current every day tobacco/nicotine user cigarettes Alcohol intake: current Alcohol intake frequency: holidays/special occasions only Substance/Drug Use: never Mental Status Exam MSE Comments: This is an obese white female in hospital scrubs with adequate grooming and eye contact. No abnormal movements except for mild psychomotor retardation. Mostly cooperative with exam and mild distress. Speech was clear normal rate and volume. Mood described as a little anxious, affect congruent. Thought process organized eye: Patient denies suicidal or homicidal ideation, there were no delusions reported or noted, denied any auditory or visual hallucinations. Attention and concentration appeared intact and memory was mostly reliable but none were formally tested. She is alert and oriented x 3. Insight limited. Judgment and impulse control l impaired. Vitals/I&O/Wt Last Vital Signs Temp 98.5 F 12/22/24 12:00 Pulse 93 12/22/24 12:00 Resp 16 12/22/24 08:20 BP 183/101 12/22/24 12:00 Pulse Ox 95 12/22/24 12:00 O2 Del Method Room Air 12/22/24 08:20 O2 Flow Rate 4 12/22/24 02:12 12/21/24 12/22/24 12/22/24 22:59 06:59 14:59 Intake Total 1000 / 1000 1300 / 2300 50 / 50 Balance 1000 / 1000 1300 / 2300 50 / 50 Weight last 48 hrs Weight 83.461 kg Weight 80.966 kg Data NPU 12/23/24 03:28 12/23/24 03:28 Micro: Microbiology 12/21/24 18:56 Blood Culture - Preliminary Blood SPECIMEN COLLECTED 12/21/24 18:54 Blood Culture - Preliminary Blood SPECIMEN COLLECTED Microbiology 12/21/24 18:56 Blood Blood Culture - Preliminary SPECIMEN COLLECTED 12/21/24 18:54 Blood Blood Culture - Preliminary SPECIMEN COLLECTED A&P Assessment and plan 1. Alcohol intoxication: 2. Alcohol abuse: 3. Partner relational problem: 4. Generalized anxiety disorder: Plan: This is a 54-year-old white female with a long history of anxiety but no significant psychiatric treatment who presents secondary to dangerous intoxication that she has been somewhat tried to downplay the cause as she reports not having significant regular drinking behavior. He identified conflict with a new significant other as a nidus for additional drinking. 1. Continue current medication. 2. Suggest/recommend admission to the neuropsychiatric unit to get collateral information to connect care with appropriate resources. 3. Patient's revealing that she does have some awareness about what drove the change in her drinking behavior to the level that she presented with but then is using the fact that she was intoxicated and does not remember as a defensive further insight. 4. Xanax likely not the best anxiety agent given these concerns with her drinking. 5. Continue CIWA protocol. 6. Obtain collateral information. 7. Observe against the backdrop of the 96-hour hold. 8. Will continue to follow PDMP PDMP Reviewed: Not Reviewed Attestations NPU Medical Necessity Statement*: N/A. Please see primary team note for medical necessity. However recommend inpatient hospitalization on neuropsychiatric unit for short stay. Coding Level of Care Code Acute Code for [facility] Diagnoses Alcohol intoxication F10.929 Alcohol abuse F10.10 Partner relational problem Z63.0 Generalized anxiety disorder F41.1
[2024-12-22 13:02] LABS: Free T4 Free Thyroxine 1.27 ng/dL (0.82-1.77)
--- NOTE | 2024-12-22 15:03 | P.PN_ITS ---
Subjective 2 Subjective: Hospital course, labs appreciated. Patient seen sitting at the edge of the bed with sitter at bedside. Denies any nausea, vomiting, headache. States she is feeling a lot better. States she would like to go home today if possible. Continues to remain on room air. Blood pressure is elevated. Vitals/I&O/Wt Last Vital Signs Temp 98.5 F 12/22/24 12:00 Pulse 78 12/22/24 14:00 Resp 16 12/22/24 08:20 BP 183/101 12/22/24 12:00 Pulse Ox 95 12/22/24 12:00 O2 Del Method Room Air 12/22/24 08:20 O2 Flow Rate 4 12/22/24 02:12 12/22/24 12/22/24 12/22/24 06:59 14:59 22:59 Intake Total 1300 / 2300 1050 / 1050 Balance 1300 / 2300 1050 / 1050 Weight last 48 hrs Weight 83.461 kg Weight 80.966 kg Physical Exam 2 Narrative: General: No acute distress, AO x3, anxious HEENT: PERRLA, pupils bilaterally equal and reactive Chest: Normal vesicular breath sounds, no added sounds, equal good air entry bilaterally CVS: S1-S2 regular, no murmurs, no tachycardia, no gallops, no rubs Abdomen: Soft, nontender, no organomegaly, bowel sounds present Neuro: No focal deficits, no facial deformity, AO x3, power 5/5 in all limbs Data 12/22/24 03:35 12/22/24 03:35 Micro: Microbiology 12/21/24 18:56 Blood Culture - Preliminary Blood SPECIMEN COLLECTED 12/21/24 18:54 Blood Culture - Preliminary Blood SPECIMEN COLLECTED A&P Assessment and plan 1. Acute hypoxic respiratory failure: 2. Aspiration pneumonitis: 3. Alcohol intoxication: 4. Dehydration: 5. Hypertension: 6. Alcohol abuse: 7. Hypernatremia: Plan: Acute hypoxic respiratory failure secondary to aspiration pneumonitis versus delirium and decreased mentation due to alcohol intoxication. Resolved. Oxygen supplementation keeping saturation over 90%. Change antibiotics to oral azithromycin 5 mg oral daily and IV ceftriaxone 1 g daily. If remains on room air without leukocytosis or fever can transition to oral antibiotics at next 24 hours. Patient is allergic to penicillin. Change to DuoNeb as needed. Nausea and vomiting: Most likely in setting of alcoholic intoxication. Protonix 40 mg oral daily. Zofran as needed. Alcoholic intoxication: Alcohol level more than 400 on admission. Continue to monitor for alcohol withdrawal. CIWA protocol. Hypernatremia: Sodium to 147. Most likely in setting of dehydration. Switch from NS to D5 NS at 75 cc/h. Uncontrolled hypertension: Goal blood pressure less than 140/90 Srea. Certainly anxiety/alcohol withdrawal is playing a part in elevated blood pressures. Restart home dose of lisinopril. Xanax 0.5 one-time. Blood pressures remain elevated can add hydralazine 10 mg IV every 4 hours as needed for systolic blood pressure of more than 150 mmHg. Will uptitrate as for goal blood pressure. 96-hour hold: Will consult psychiatry for further evaluation. Cardiac diet Protonix for PUD prophylaxis Heparin for DVT prophylaxis PDMP PDMP Reviewed: Not Reviewed Attestations 2 Medical Necessity Statement*: Requested hospitalization for management of 96-hour hold, hypernatremia in a patient admitted for hypoxic respiratory failure due to poor mentation from alcohol intoxication Diagnoses Acute hypoxic respiratory failure J96.01 Aspiration pneumonitis J69.0 Alcohol intoxication F10.929 Dehydration E86.0 Hypertension I10 Alcohol abuse F10.10 Hypernatremia E87.0
[2024-12-22] MEDS: hyDRALAzine 20 mg/mL INJ 1 mL 10 MG IVP ×2 (16:10→23:34)
[2024-12-22] MEDS: LORazepam 1 MG/0.5 ML injection 2 MG IVP (17:10)
[2024-12-22] MEDS: labetalol 5 mg/mL SDV 20mL 10 MG IVP (19:00)
[2024-12-23] VITALS (14 sets, daily range): BP systolic 120–191; BP diastolic 69–117; PULSE 71–96; RESP 15–18; TEMP 35.7–37.1; O2SAT 92–96
[2024-12-23] MEDS: dextrose 5%-sod chloride 0.9% 1,000 ML 75 ML IV (00:59)
[2024-12-23] MEDS: hyDRALAzine 20 mg/mL INJ 1 mL 10 MG IVP (02:42)
[2024-12-23 03:46] LABS: Hematocrit 42.4 % (36-47); Hemoglobin 13.70 g/dL (11.27-16.99); Mean Corpuscular HGB Conc 32.3 g/dL (30-55); Mean Corpuscular Hemoglobin 31.9 pg (27-33); Mean Corpuscular Volume 98.6 fl (85-98); Nucleated Red Blood Cells % 0 %; Platelet Count 247 10^3/cmm (157-399); Red Blood Count 4.30 10^6/uL (3.85-5.65); White Blood Count 8.47 10^3/uL (3.29-11.43)
[2024-12-23 04:07] LABS: Alanine Aminotransferase 13 U/L (0-33); Albumin Level 4.3 g/dL (3.5-5.2); Alkaline Phosphatase 87 U/L (35-105); Anion Gap 16.5 (5-19); Aspartate Amino Transferase 17 U/L (0-32); Blood Urea Nitrogen 6 mg/dL (6-20); Calcium 9.1 mg/dL (8.5-10.5); Carbon Dioxide 24 mmol/L (22-29); Chloride 104 mmol/L (98-107); Creatinine Clr Calc Pharmacy 108.4158; Globulin 2.6 g/dL (1.3-4.6); Glucose 108 mg/dL (65-115); Osmolality Calculated 290 mOsm/kg (285-295); Potassium 3.5 mmol/L (3.5-5.1); Sodium 141 mmol/L (136-145); Total Protein 6.9 g/dL (6.6-8.7)
[2024-12-23 04:08] LABS: Cholesterol 219 mg/dL (0-200); HDL Cholesterol 121 mg/dL (60-100); Magnesium 1.9 mg/dL (1.7-2.3); Triglycerides 65 mg/dL (0-150); VLDL Cholestrol Calculation 13 mg/dL (0-30)
[2024-12-23] MEDS: multivitamin therapeutic Tablet 1 TAB PO (05:00)
[2024-12-23 06:44] LABS: Amylase 41 U/L (21-101)
[2024-12-23] MEDS: ondansetron 2 mg/ML SDV 2 mL 4 MG IVP (07:21)
[2024-12-23] MEDS: heparin 5,000 unit/mL INJ 1 mL 5000 UNIT SUBCUT (10:16)
--- NOTE | 2024-12-23 10:57 | PC.NURSE ---
Report was given to NPU nurse. Patient was taken down to NPU without any complications with security.
--- NOTE | 2024-12-23 11:27 | PC.NURSE ---
Pt. was transferred from ICU to the NPU on a 96 hr hold d/t intoxication. Pt. stated she does not know why she is here that she got drunk and had trouble breathing d/t asthma. Pt. has a spinal stimulator implanted on her right lower back, a bruise to lower abd from Lovenox inj in ICU, bruising to right harm from IV sticks. Pt. is angry about being her and refused to sign paperwork.
--- NOTE | 2024-12-23 11:59 | P.PN_ITS ---
Subjective 2 Subjective: No acute vents overnight. Seen with sitter at bedside. Patient denies any nausea, vomiting, headache. Blood pressure is better controlled. Vitals/I&O/Wt Last Vital Signs Temp 96.3 F L 12/23/24 05:00 Pulse 86 12/23/24 09:37 Resp 15 12/23/24 09:37 BP 128/76 12/23/24 07:00 Pulse Ox 96 12/23/24 09:37 O2 Del Method Room Air 12/23/24 11:13 O2 Flow Rate 4 12/22/24 02:12 12/22/24 12/23/24 12/23/24 22:59 06:59 14:59 Intake Total 553.75 / 1603.75 446.25 / 0.00 1000 / 1000 Balance 553.75 / 1603.75 446.25 / 2049.00 1000 / 1000 Weight last 48 hrs Weight 83.461 kg Weight 80.966 kg Physical Exam 2 Narrative: General: No acute distress, AO x3, anxious HEENT: PERRLA, pupils bilaterally equal and reactive Chest: Normal vesicular breath sounds, no added sounds, equal good air entry bilaterally CVS: S1-S2 regular, no murmurs, no tachycardia, no gallops, no rubs Abdomen: Soft, nontender, no organomegaly, bowel sounds present Neuro: No focal deficits, no facial deformity, AO x3, power 5/5 in all limbs Data 12/23/24 03:28 12/23/24 03:28 Micro: Microbiology 12/21/24 18:56 Blood Culture - Preliminary Blood NEGATIVE TO DATE 12/21/24 18:54 Blood Culture - Preliminary Blood NEGATIVE TO DATE A&P Assessment and plan 1. Acute hypoxic respiratory failure: 2. Aspiration pneumonitis: 3. Alcohol intoxication: 4. Dehydration: 5. Hypertension: 6. Alcohol abuse: 7. Hypernatremia: Plan: Acute hypoxic respiratory failure secondary to aspiration pneumonitis versus delirium and decreased mentation due to alcohol intoxication. Resolved. Oxygen supplementation keeping saturation over 90%. Change antibiotics to oral azithromycin 5 mg oral daily and IV ceftriaxone 1 g daily. If remains on room air without leukocytosis or fever can transition to oral antibiotics at next 24 hours. Patient is allergic to penicillin. Change to DuoNeb as needed. Nausea and vomiting: Most likely in setting of alcoholic intoxication. Protonix 40 mg oral daily. Zofran as needed. Alcoholic intoxication: Alcohol level more than 400 on admission. Continue to monitor for alcohol withdrawal. CIWA protocol. Hypernatremia: Sodium to 147. Most likely in setting of dehydration. Switch from NS to D5 NS at 75 cc/h. Uncontrolled hypertension: Goal blood pressure less than 140/90 Sera. Certainly anxiety/alcohol withdrawal is playing a part in elevated blood pressures. Restart home dose of lisinopril. Xanax 0.5 one-time. Blood pressures remain elevated can add hydralazine 10 mg IV every 4 hours as needed for systolic blood pressure of more than 150 mmHg. Will uptitrate as for goal blood pressure. 96-hour hold: Will consult psychiatry for further evaluation. Cardiac diet Protonix for PUD prophylaxis Heparin for DVT prophylaxis Plan for the day: No further leukocytosis. Remains on room air. Can discontinue IV antibiotics. Transition to oral Levaquin to finish a 5-day course overall. Hyponatremia has resolved. Good oral intake. DC fluids. Goal blood pressure less than 140/90 mmHg. Continue with current dose of lisinopril, amlodipine and metoprolol. Transferred to Neuropsych Unit for further evaluation. Patient on 96-hour hold. Appreciate psychiatric evaluation. PDMP PDMP Reviewed: Not Reviewed Attestations 2 Medical Necessity Statement*: Requires further hospitalization for 96-hour hold in a patient admitted with alcohol intoxication, acute hypoxia due to delirium and concerns for aspiration pneumonia Diagnoses Acute hypoxic respiratory failure J96.01 Aspiration pneumonitis J69.0 Alcohol intoxication F10.929 Dehydration E86.0 Hypertension I10 Alcohol abuse F10.10 Hypernatremia E87.0
--- NOTE | 2024-12-23 13:32 | P.NPUPN_ITS ---
Subjective NPU 2 Subjective: Patient presented today reporting that things are going better. She continues to lament about not feeling a admission is necessary. We discussed her focusing on her alcohol use in this situation and what was driving that behavior given the critical level of alcohol she ended up having in her system. We discussed being able to talk to someone in her life to understand the situation a little better. She denies any side effects of medication. Mental Status Exam 2 MSE Comments: This is an obese white female in hospital scrubs with adequate grooming and eye contact. No abnormal movements except for mild psychomotor retardation. Mostly cooperative with exam and mild distress. Speech was clear normal rate and volume. Mood described as a little anxious, affect congruent. Thought process organized eye: Patient denies suicidal or homicidal ideation, there were no delusions reported or noted, denied any auditory or visual hallucinations. Attention and concentration appeared intact and memory was mostly reliable but none were formally tested. She is alert and oriented x 3. Insight limited. Judgment and impulse control l impaired. Vitals/I&O/Wt Last Vital Signs Temp 98.7 F 12/23/24 12:00 Pulse 74 12/23/24 12:00 Resp 16 12/23/24 12:00 BP 143/98 12/23/24 12:00 Pulse Ox 96 12/23/24 12:00 O2 Del Method Room Air 12/23/24 12:00 O2 Flow Rate 4 12/22/24 02:12 12/22/24 12/23/24 12/23/24 22:59 06:59 14:59 Intake Total 553.75 / 1603.75 446.25 / 2050.00 1000 / 1000 Balance 553.75 / 1603.75 446.25 / 2050.00 1000 / 1000 Weight last 48 hrs Weight 83.461 kg Weight 80.966 kg Data NPU 12/23/24 03:28 12/23/24 03:28 Micro: Microbiology 12/21/24 18:56 Blood Culture - Preliminary Blood NEGATIVE TO DATE 12/21/24 18:54 Blood Culture - Preliminary Blood NEGATIVE TO DATE Microbiology 12/21/24 18:56 Blood Blood Culture - Preliminary NEGATIVE TO DATE 12/21/24 18:54 Blood Blood Culture - Preliminary NEGATIVE TO DATE A&P Assessment and plan 1. Alcohol intoxication: 2. Alcohol abuse: 3. Partner relational problem: 4. Generalized anxiety disorder: Plan: This is a 54-year-old white female with a long history of anxiety but no significant psychiatric treatment who presents secondary to dangerous intoxication that she has been somewhat tried to downplay the cause as she reports not having significant regular drinking behavior. He identified conflict with a new significant other as a nidus for additional drinking. 1. Continue current medication. 2. Suggest/recommend admission to the neuropsychiatric unit to get collateral information to connect care with appropriate resources. 3. Patient's revealing that she does have some awareness about what drove the change in her drinking behavior to the level that she presented with but then is using the fact that she was intoxicated and does not remember as a defensive further insight. 4. Xanax likely not the best anxiety agent given these concerns with her drinking. 5. Continue CIWA protocol. 6. Transferred to the neuropsychiatric unit. 7. Observe against the backdrop of the 96-hour hold. 8. Continue every 15 minute checks for safety. 9. Encourage individual, group and milieu therapy. 10. Encourage sober living treatment after discharge at the highest level care to which she is willing to commit. PDMP PDMP Reviewed: Not Reviewed Involuntary Hold Information 2 Hold Status: Legal Status: 96 Hour Hold Date/Time Hold Expires: 1 @1201 Attestations NPU 2 Medical Necessity Statement*: Inpatient hospitalization is medically necessary and the clinically appropriate intervention at this time. We will monitor/initiate medication and make changes as indicated. She will be in the hospital for over 2 midnights. Likely length of stay 2 to 4 days. Coding Level of Care Code Acute Code for [facility] Diagnoses Alcohol intoxication F10.929 Alcohol abuse F10.10 Partner relational problem Z63.0 Generalized anxiety disorder F41.1
[2024-12-24] VITALS (8 sets, daily range): BP systolic 100–157; BP diastolic 55–99; PULSE 65–80; RESP 16–18; TEMP 36.6–37.5; O2SAT 94–97
[2024-12-24] MEDS: multivitamin therapeutic Tablet 1 TAB PO (08:35)
[2024-12-24 09:15] LABS: Hematocrit 41.2 % (36-47); Hemoglobin 13.50 g/dL (11.27-16.99); Mean Corpuscular HGB Conc 32.8 g/dL (30-55); Mean Corpuscular Hemoglobin 32.1 pg (27-33); Mean Corpuscular Volume 97.9 fl (85-98); Nucleated Red Blood Cells % 0 %; Platelet Count 227 10^3/cmm (157-399); Red Blood Count 4.21 10^6/uL (3.85-5.65); White Blood Count 4.07 10^3/uL (3.29-11.43)
[2024-12-24 09:35] LABS: Magnesium 1.9 mg/dL (1.7-2.3)
[2024-12-24 09:36] LABS: Alanine Aminotransferase 12 U/L (0-33); Albumin Level 4.4 g/dL (3.5-5.2); Alkaline Phosphatase 87 U/L (35-105); Anion Gap 19.7 (5-19); Aspartate Amino Transferase 16 U/L (0-32); Blood Urea Nitrogen 9 mg/dL (6-20); Calcium 9.4 mg/dL (8.5-10.5); Carbon Dioxide 22 mmol/L (22-29); Chloride 100 mmol/L (98-107); Creatinine Clr Calc Pharmacy 81.3119; Globulin 2.0 g/dL (1.3-4.6); Glucose 100 mg/dL (65-115); Osmolality Calculated 285 mOsm/kg (285-295); Potassium 3.7 mmol/L (3.5-5.1); Sodium 138 mmol/L (136-145); Total Protein 6.4 g/dL (6.6-8.7)
--- NOTE | 2024-12-24 10:44 | DCPLANNER ---
IMM was given to pt and rights explained. Copy placed in pts file.
[2024-12-25 12:38] LABS: Vitamin B1(Thiamin) Plas/Ser 212 nmol/L (8-30)
== END 2024-12-24 17:15 | disposition home or self-care (01) | DRG 177 ==
LOC: ER 21:48 → ICU 22:09 → NP 12-23 10:53
PROVIDERS: Admitting Provider Internal Medicine; Emergency Provider Emergency Medicine; PCP Physician Assistant; Visit Provider Student in an Organized Health Care Education/Training Program
DX: J69.0 Pneumonitis due to inhalation of food and vomit (principal); J96.01 Acute respiratory failure with hypoxia; F10.121 Alcohol abuse with intoxication delirium; E87.0 Hyperosmolality and hypernatremia; Y90.8 Blood alcohol level of 240 mg/100 ml or more; E66.9 Obesity, unspecified; Z68.32 Body mass index [BMI] 32.0-32.9, adult; F41.1 Generalized anxiety disorder; F22 Delusional disorders; I10 Essential (primary) hypertension; F17.210 Nicotine dependence, cigarettes, uncomplicated; E86.0 Dehydration; E89.0 Postprocedural hypothyroidism; Z63.0 Problems in relationship with spouse or partner; Z96.82 Presence of neurostimulator
CPT/HCPCS: 36415; 70450; 71045; 80053; 80061; 80306; 80307; 81003; 82150; 82607; 82746; 82803; 82805; 83036; 83540; 83550; 83605; 83690; 83735; 83880; 84100; 84425; 84439; 84443; 84481; 84484; 85025; 87040; 87637; 93005; 94640; 96365; 96372; 96375; 97150; 97165; 99285; 99291; 99292; J0360; J0456; J0696; J1630; J1644; J2060; J2405; J3411; J3490; J7030; J7042; J7050; J9999; Q0144